=== PATIENT | male | born 1950 | race Caucasian/White ===

== ENCOUNTER 2017-11-05 16:35 | Emergency (ER) | payer OTHER, SELFPAY ==
--- NOTE | 2017-11-05 16:35 | DT_ITS ---
This patient was seen during an EMR downtime November 02, 2017 - November 09, 2017. This patient may have a combination of paper and electronic documentation or all paper documentation. All documentation is viewable within the e-chart portion of [facility] for each patient visit.
== END 2017-11-05 20:15 | disposition home or self-care (01) ==
LOC: ED 11-06 10:23
PROVIDERS: Emergency Provider Emergency Medicine; Family Provider Family Medicine; PCP Family Medicine
DX: S50.911A Unspecified superficial injury of right forearm, initial encounter (principal); W31.89XA Contact with other specified machinery, initial encounter; Y93.9 Activity, unspecified; Y92.9 Unspecified place or not applicable; Y99.0 Civilian activity done for income or pay; I10 Essential (primary) hypertension; Z87.891 Personal history of nicotine dependence; Z79.899 Other long term (current) drug therapy
CPT/HCPCS: 99282

== ENCOUNTER 2017-11-26 13:30 | Outpatient (RCR) | payer OTHER, SELFPAY ==
[2017-11-12 13:18] VITALS: BP 114/71; PULSE 59; RESP 18; TEMP 37
--- NOTE | 2017-11-12 14:02 | PCM.WC.HP ---
(1) Injury of right upper extremity Status: Acute Current Visit: Yes Code(s): S49.91XA - Unspecified injury of right shoulder and upper arm, initial encounter (2) Ulcer of upper extremity Status: Acute Current Visit: Yes Qualifiers: Non-pressure ulcer stage: with fat layer exposed Qualified Code(s): L98.492 - Non-pressure chronic ulcer of skin of other sites with fat layer exposed Code(s): L98.499 - Non-pressure chronic ulcer of skin of other sites with unspecified severity Comment: right (3) Cellulitis of right upper extremity Status: Acute Current Visit: Yes Code(s): L03.113 - Cellulitis of right upper limb History of Present Illness Date of Service: 11/12/17 Chief Complaint: BWC injury right upper extremity History of Wound: This is a 67-year-old white male who presents to the wound healing center today for treatment of a ulcer in the right upper extremity. This is a [facility] claim and the injury occurred at work. The patient states that on 10/27/2017, his arm was caught in between 2 rollers. He went to the emergency department and x-rays were negative. He has a past medical history significant for that of hypertension and vitamin D deficiency. His past surgical history includes a hip replacement. On 11/03/2017, the patient followed up at a workers comp clinic and was diagnosed with cellulitis of the right upper extremity and placed on Bactrim. He has tolerating the Bactrim fine. At his previous visit here at the wound center, he was sent to the emergency department due to a moderate amount of uncontrolled bleeding. This was on 11/05/2017, the bleeding was controlled in the emergency department and the patient was sent home. He was unable to get the Santyl ordered for him due to coverage. He is currently been utilizing double antibiotic ointment and wrapping the affected extremity with an Enmanuel wrap. He denies any systemic signs of infection and has 1 day left on an antibiotic. The patient otherwise denies any fever, chills, nausea, vomiting, shortness of breath, chest pain or pressure, palpitations, orthopnea, lower extremity edema, syncope or presyncopal episodes. Past Medical History Lives: Spouse/ Significant Other Tobacco Use: Non-smoker Review of Systems Constitutional: Denies: Chills, Fever, Weight Change Eyes: Denies: Pain, Vision Change HEENT: Denies: Difficulty Hearing, Difficulty Swallowing, Sinus Congestion Cardiovascular: Denies: Chest Pain, Palpitations Respiratory: Denies: Cough, Shortness of Breath Gastrointestinal: Denies: Diarrhea, Nausea, Vomiting Genitourinary: Denies: Dysuria, Hematuria Skin: Reports: Wounds - See HPI Endocrine: Denies: Heat/ Cold Intolerance, Polydipsia, Polyuria Hematologic/ Lymphatic: Denies: Easy Bruising, Easy Bleeding - Physical Exam Vital Signs Temp Pulse Resp BP 98.6 F 59 L 18 114/71 11/12/17 13:18 11/12/17 13:18 11/12/17 13:18 11/12/17 13:18 General: Alert, Oriented x3, Cooperative, No apparent distress HEENT: Atraumatic Lungs: Clear to auscultation Cardiovascular: Regular rate Skin: Ulcer/ Wound - Ulcer present right upper arm, surrounding erythema and the wound that has resolved in comparison to previous evaluation. Small amount of slough present and dry wound edges, center of ulcer has a $0.50 piece size of adherent necrotic tissue and slough, no increase in pain or purulent drainage or signs of infection Wound Measurements and Assessment WC - Nurse 1 - General Ulcer Measurement Start: 11/12/17 13:16 Freq: Status: Active Protocol: Activity Type Activity Date Activity User E-Sign Co-Sign Detail Recorded Client Recorded Date Recorded By Document 11/12/17 13:18 [id number] 11/12/17 13:30 DL 11/12/17 13:18 Wound Center Nurse 1 [Ulcer Assessment] #1 RUpper M Arm -Current Size (cm) - Length 12.4 -Current Size (cm) - Width 9.1 -Current Size (cm) - Depth 0.1 -Total Square Cm 112.84 -Photo Taken No -Exudate Amt Medium (34-66%) -Exudate Type Yellow/Green -Wound Margin Distinct, Outline Attached -Granulation Amt Large (67-100%) -Granulation Quality Red -Necrosis Amt Medium (34-66%) -Necrotic Tissue Type Adherent Slough -Structure Exposed N/A -Texture (Keesha-wound Skin Appearance) Scarring -Moisture (Keesha-wound Skin Appearance No Abnormality ) -Color (Keesha-wound Skin Appearance) No Abnormality Erythema -Temperature (Keesha-wound Skin No Abnormality Appearance) (Pt Warm) -Ulcer Cleansing Rinsed/ Irrigated with Saline -Foul Odor after Cleansing No -Anesthetic Used 4% Lidocaine Solution - Nurse 2 - General Ulcer CM Notes Start: 11/12/17 13:16 Freq: Status: Active Protocol: Activity Type Activity Date Activity User E-Sign Co-Sign Detail Recorded Client Recorded Date Recorded By Document 11/12/17 13:37 [email or web address] [id number] 11/12/17 13:49 11/12/17 13:37 Wound Center Nurse 2 [Procedure/Treatment] -Time 13:46 -Correct Patient Yes -Correct Side, Site, Position Yes -Correct Procedure Yes -Procedure Performed Yes -Type of Procedure Debridement -Clinical Debridement Subcutaneous -Post Debridement Size (cm) - Length 14.0 -Post Debridement Size (cm) - Width 11.0 -Post Debridement Size (cm) - Depth 0.1 -Total Square Cm 154.00 -Wound/Ulcer Outcome Not Healed -Ulcer Cleansing Rinsed/ Irrigated with Saline -Foul Odor after Cleansing No -Bioengineered Tissue No -Topical Lidocaine (%) 4 -Lidocaine (ml) 10 -Bleeding Controlled with NA -Treatment Response Procedure Tolerated Well [See Physician Procedure note for Specifics] Pain Scale: 0-10 Numeric [Pain] -Is Patient Pain Free? Yes Neurological: Neuro grossly intact Psych/Mental Status: Normal Affect, Alert and oriented to time, place, person, mood and affect Debridement Note Post-Debridement Measurements/Treatment - Nurse 2 - General Ulcer CM Notes Start: 11/12/17 13:16 Freq: Status: Active Protocol: Activity Type Activity Date Activity User E-Sign Co-Sign Detail Recorded Client Recorded Date Recorded By Document 11/12/17 13:37 [id number] 11/12/17 13:49 11/12/17 13:37 Wound Center Nurse 2 #1 Penny M Arm -Time 13:46 -Correct Patient Yes -Correct Side, Site, Position Yes -Correct Procedure Yes -Procedure Performed Yes -Type of Procedure Debridement -Clinical Debridement Subcutaneous -Post Debridement Size (cm) - Length 14.0 -Post Debridement Size (cm) - Width 11.0 -Post Debridement Size (cm) - Depth 0.1 -Total Square Cm 154.00 -Wound/Ulcer Outcome Not Healed -Ulcer Cleansing Rinsed/ Irrigated with Saline -Foul Odor after Cleansing No -Bioengineered Tissue No -Topical Lidocaine (%) 4 -Lidocaine (ml) 10 -Bleeding Controlled with NA -Treatment Response Procedure Tolerated Well Pain Scale: 0-10 Numeric Is Patient Pain Free? Yes Wound debrided: Traumatic right upper extremity ulcer Laterality: Right Type of Debridement: Excisional debridement Anesthesia Used: 5% Lidocaine Gel Depth: in the subcutaneous layer Percentage of wound debrided: 100 Instrument Used: 5mm curette, Forceps, - - Scissors Tissue Removed: Slough and devitalized tissue Severity: Fat Layer Exposed Amount of bleeding with debridement: Mild Bleeding Controlled with: Pressure Patient tolerated procedure well Assessment/Plan Active Problems Injury of right upper extremity (Acute) Ulcer of upper extremity (Acute) right Cellulitis of right upper extremity (Acute) Assessment: See diagnoses Plan: The patient was seen and examined at the wound center today and was updated on the plan of care. The patient's wound is improving prior to last week. A subcutaneous debridement was performed today. The patient tolerated the procedure well. The patients wound care will consist of: Applying Santyl or meta honey, which ever treatment modality is covered better by [facility], to the area of necrotic tissue and adherent slough and hydrogel applied to the remaining areas of the ulcer. Enmanuel wrap for light compression, continue the entire completion of the Bactrim DS for cellulitis which has almost entirely resolved. Patient educated on the importance of diet on wound healing and instructed to increase protein and vitamin C intake. Patient verbalized understanding. Patient will follow up at wound healing center in one week or sooner if needed. This note was generated with [employer] software. It may contain incorrect words, spelling, and punctuation that were not noted in checking the note before signing. Code Visit 111xxx-113xx: 73826 Autumn subq tissue 20 sq cm/< Add On Codes: 43445 Autumn subq tissue add-on
--- NOTE | 2017-11-12 14:12 | HP.PCM_ITS ---
(1) Injury of right upper extremity Status: Acute Current Visit: Yes Code(s): S49.91XA - Unspecified injury of right shoulder and upper arm, initial encounter (2) Ulcer of upper extremity Status: Acute Current Visit: Yes Qualifiers: Non-pressure ulcer stage: with fat layer exposed Qualified Code(s): L98.492 - Non-pressure chronic ulcer of skin of other sites with fat layer exposed Code(s): L98.499 - Non-pressure chronic ulcer of skin of other sites with unspecified severity Comment: right (3) Cellulitis of right upper extremity Status: Acute Current Visit: Yes Code(s): L03.113 - Cellulitis of right upper limb History of Present Illness Date of Service: 11/12/17 Chief Complaint: BWC injury right upper extremity History of Wound: This is a 67-year-old white male who presents to the wound healing center today for treatment of a ulcer in the right upper extremity. This is a [facility] claim and the injury occurred at work. The patient states that on 10/27/2017, his arm was caught in between 2 rollers. He went to the emergency department and x-rays were negative. He has a past medical history significant for that of hypertension and vitamin D deficiency. His past surgical history includes a hip replacement. On 11/03/2017, the patient followed up at a workers comp clinic and was diagnosed with cellulitis of the right upper extremity and placed on Bactrim. He has tolerating the Bactrim fine. At his previous visit here at the wound center, he was sent to the emergency department due to a moderate amount of uncontrolled bleeding. This was on 2017, the bleeding was controlled in the emergency department and the patient was sent home. He was unable to get the Santyl ordered for him due to coverage. He is currently been utilizing double antibiotic ointment and wrapping the affected extremity with an Enmanuel wrap. He denies any systemic signs of infection and has 1 day left on an antibiotic. The patient otherwise denies any fever, chills, nausea, vomiting, shortness of breath, chest pain or pressure , palpitations, orthopnea, lower extremity edema, syncope or presyncopal episodes. Past Medical History Lives: Spouse/ Significant Other Tobacco Use: Non-smoker Review of Systems Constitutional: Denies: Chills, Fever, Weight Change Eyes: Denies: Pain, Vision Change HEENT: Denies: Difficulty Hearing, Difficulty Swallowing, Sinus Congestion Cardiovascular: Denies: Chest Pain, Palpitations Respiratory: Denies: Cough, Shortness of Breath Gastrointestinal: Denies: Diarrhea, Nausea, Vomiting Genitourinary: Denies: Dysuria, Hematuria Skin: Reports: Wounds - See HPI Endocrine: Denies: Heat/ Cold Intolerance, Polydipsia, Polyuria Hematologic/ Lymphatic: Denies: Easy Bruising, Easy Bleeding - Physical Exam Vital Signs Temp Pulse Resp BP 98.6 F 59 L 18 114/71 11/12/17 13:18 11/12/17 13:18 11/12/17 13:18 11/12/17 13:18 General: Alert, Oriented x3, Cooperative, No apparent distress HEENT: Atraumatic Lungs: Clear to auscultation Cardiovascular: Regular rate Skin: Ulcer/ Wound - Ulcer present right upper arm, surrounding erythema and the wound that has resolved in comparison to previous evaluation. Small amount of slough present and dry wound edges, center of ulcer has a $0.50 piece size of adherent necrotic tissue and slough, no increase in pain or purulent drainage or signs of infection Wound Measurements and Assessment WC - Nurse 1 - General Ulcer Measurement Start: 11/12/17 13:16 Freq: Status: Active Protocol: Activity Type Activity Date Activity User E-Sign Co-Sign Detail Recorded Client Recorded Date Recorded By Document 11/12/17 13:18 [id number] 11/12/17 13:30 DL 11/12/17 13:18 Wound Center Nurse 1 [Ulcer Assessment] #1 RUpper M Arm -Current Size (cm) - Length 12.4 -Current Size (cm) - Width 9.1 -Current Size (cm) - Depth 0.1 -Total Square Cm 112.84 -Photo Taken No -Exudate Amt Medium (34-66%) -Exudate Type Yellow/Green -Wound Margin Distinct, Outline Attached -Granulation Amt Large (67-100%) -Granulation Quality Red -Necrosis Amt Medium (34-66%) -Necrotic Tissue Type Adherent Slough -Structure Exposed N/A -Texture (Keesha-wound Skin Appearance) Scarring -Moisture (Keesha-wound Skin Appearance No Abnormality ) -Color (Keesha-wound Skin Appearance) No Abnormality Erythema -Temperature (Keesha-wound Skin No Abnormality Appearance) (Pt Warm) -Ulcer Cleansing Rinsed/ Irrigated with Saline -Foul Odor after Cleansing No -Anesthetic Used 4% Lidocaine Solution - Nurse 2 - General Ulcer CM Notes Start: 11/12/17 13:16 Freq: Status: Active Protocol: Activity Type Activity Date Activity User E-Sign Co-Sign Detail Recorded Client Recorded Date Recorded By Document 11/12/17 13:37 [email or web address] [id number] 11/12/17 13:49 11/12/17 13:37 Wound Center Nurse 2 [Procedure/Treatment] -Time 13:46 -Correct Patient Yes -Correct Side, Site, Position Yes -Correct Procedure Yes -Procedure Performed Yes -Type of Procedure Debridement -Clinical Debridement Subcutaneous -Post Debridement Size (cm) - Length 14.0 -Post Debridement Size (cm) - Width 11.0 -Post Debridement Size (cm) - Depth 0.1 -Total Square Cm 154.00 -Wound/Ulcer Outcome Not Healed -Ulcer Cleansing Rinsed/ Irrigated with Saline -Foul Odor after Cleansing No -Bioengineered Tissue No -Topical Lidocaine (%) 4 -Lidocaine (ml) 10 -Bleeding Controlled with NA -Treatment Response Procedure Tolerated Well [See Physician Procedure note for Specifics] Pain Scale: 0-10 Numeric [Pain] -Is Patient Pain Free? Yes Neurological: Neuro grossly intact Psych/Mental Status: Normal Affect, Alert and oriented to time, place, person, mood and affect Debridement Note Post-Debridement Measurements/Treatment - Nurse 2 - General Ulcer CM Notes Start: 11/12/17 13:16 Freq: Status: Active Protocol: Activity Type Activity Date Activity User E-Sign Co-Sign Detail Recorded Client Recorded Date Recorded By Document 11/12/17 13:37 [id number] 11/12/17 13:49 11/12/17 13:37 Wound Center Nurse 2 #1 Penny M Arm -Time 13:46 -Correct Patient Yes -Correct Side, Site, Position Yes -Correct Procedure Yes -Procedure Performed Yes -Type of Procedure Debridement -Clinical Debridement Subcutaneous -Post Debridement Size (cm) - Length 14.0 -Post Debridement Size (cm) - Width 11.0 -Post Debridement Size (cm) - Depth 0.1 -Total Square Cm 154.00 -Wound/Ulcer Outcome Not Healed -Ulcer Cleansing Rinsed/ Irrigated with Saline -Foul Odor after Cleansing No -Bioengineered Tissue No -Topical Lidocaine (%) 4 -Lidocaine (ml) 10 -Bleeding Controlled with NA -Treatment Response Procedure Tolerated Well Pain Scale: 0-10 Numeric Is Patient Pain Free? Yes Wound debrided: Traumatic right upper extremity ulcer Laterality: Right Type of Debridement: Excisional debridement Anesthesia Used: 5% Lidocaine Gel Depth: in the subcutaneous layer Percentage of wound debrided: 100 Instrument Used: 5mm curette, Forceps, - - Scissors Tissue Removed: Slough and devitalized tissue Severity: Fat Layer Exposed Amount of bleeding with debridement: Mild Bleeding Controlled with: Pressure Patient tolerated procedure well Assessment/Plan Active Problems Injury of right upper extremity (Acute) Ulcer of upper extremity (Acute) right Cellulitis of right upper extremity (Acute) Assessment: See diagnoses Plan: The patient was seen and examined at the wound center today and was updated on the plan of care. The patient's wound is improving prior to last week. A subcutaneous debridement was performed today. The patient tolerated the procedure well. The patients wound care will consist of: Applying Santyl or meta honey, which ever treatment modality is covered better by [facility], to the area of necrotic tissue and adherent slough and hydrogel applied to the remaining areas of the ulcer. Enmanuel wrap for light compression, continue the entire completion of the Bactrim DS for cellulitis which has almost entirely resolved. Patient educated on the importance of diet on wound healing and instructed to increase protein and vitamin C intake. Patient verbalized understanding. Patient will follow up at wound healing center in one week or sooner if needed. This note was generated with [employer] software. It may contain incorrect words, spelling, and punctuation that were not noted in checking the note before signing. Code Visit 111xxx-113xx: 21745 Autumn subq tissue 20 sq cm/< Add On Codes: 38565 Autumn subq tissue add-on
[2017-11-19 13:14] VITALS: BP 112/73; PULSE 65; RESP 16; TEMP 36.6
--- NOTE | 2017-11-19 14:22 | PCM.WC.PN ---
(1) Injury of right upper extremity Status: Acute Current Visit: Yes Code(s): S49.91XA - Unspecified injury of right shoulder and upper arm, initial encounter (2) Ulcer of upper extremity Status: Acute Current Visit: Yes Qualifiers: Non-pressure ulcer stage: with fat layer exposed Qualified Code(s): L98.492 - Non-pressure chronic ulcer of skin of other sites with fat layer exposed Code(s): L98.499 - Non-pressure chronic ulcer of skin of other sites with unspecified severity Comment: right (3) Cellulitis of right upper extremity Status: Acute Current Visit: Yes Code(s): L03.113 - Cellulitis of right upper limb Type of Wound Date of Service: 11/19/17 Chief Complaint: BWC injury right upper extremity History of Wound: This is a 67-year-old white male who presents to the wound healing center today for treatment of a ulcer in the right upper extremity. This is a [facility] claim and the injury occurred at work. The patient states that on 10/27/2017, his arm was caught in between 2 rollers. He went to the emergency department and x-rays were negative. He has a past medical history significant for that of hypertension and vitamin D deficiency. His past surgical history includes a hip replacement. On 11/03/2017, the patient followed up at a workers comp clinic and was diagnosed with cellulitis of the right upper extremity and placed on Bactrim. He has tolerating the Bactrim fine. At his previous visit here at the wound center, he was sent to the emergency department due to a moderate amount of uncontrolled bleeding. This was on 11/05/2017, the bleeding was controlled in the emergency department and the patient was sent home. He was unable to get the Santyl ordered for him due to coverage. He is currently been utilizing double antibiotic ointment and wrapping the affected extremity with an Enmanuel wrap. He denies any systemic signs of infection and has 1 day left on an antibiotic. The patient otherwise denies any fever, chills, nausea, vomiting, shortness of breath, chest pain or pressure, palpitations, orthopnea, lower extremity edema, syncope or presyncopal episodes. Progress of Wound: cellulitis resolved, site is gradually improving, still quarter size of eschar in middle of ulcer. Santyl pending prior auth - Physical Exam Vital Signs Temp Pulse Resp BP 97.8 F 65 16 112/73 11/19/17 13:14 11/19/17 13:14 11/19/17 13:14 11/19/17 13:14 General: Alert, Oriented x3, Cooperative, No apparent distress HEENT: Atraumatic Skin: Ulcer/ Wound - ulcer present RUE with quarter size eschar in the middle, small amount of surrounding slough present, no signs of infection Wound Measurements and Assessment WC - Nurse 1 - General Ulcer Measurement Start: 11/12/17 13:16 Freq: Status: Active Protocol: Activity Type Activity Date Activity User E-Sign Co-Sign Detail Recorded Client Recorded Date Recorded By Document 11/19/17 13:14 [facility] [id number] 11/19/17 13:25 BM 11/19/17 13:14 Wound Center Nurse 1 [Ulcer Assessment] #1 RIGHT UPPER ARM -Combined with other wound No -Current Size (cm) - Length 10 -Current Size (cm) - Width 7.2 -Current Size (cm) - Depth 0.1 -Total Square Cm 72.0 -Photo Taken No -Epithelialization Small 1-33% -Tunneling No -Undermining/Tunneling No -Circular Undermining No -Exudate Amt Medium (34-66%) -Exudate Type Serosanguineous -Wound Margin Distinct, Outline Attached -Granulation Amt Medium (34-66%) -Granulation Quality Red -Slough/Fibrin Yes -Necrosis Amt Medium (34-66%) -Necrotic Tissue Type Eschar -Structure Exposed N/A -Texture (Keesha-wound Skin Appearance) Scarring -Moisture (Keesha-wound Skin Appearance Assessed ) -Color (Keesha-wound Skin Appearance) Assessed -Temperature (Keesha-wound Skin No Abnormality Appearance) (Pt Warm) -Tenderness on Palpation (Keesha-wound No Skin Appearance) -Ulcer Cleansing Rinsed/ Irrigated with Saline -Foul Odor after Cleansing No -Anesthetic Used 4% Lidocaine Solution - Nurse 2 - General Ulcer CM Notes Start: 11/12/17 13:16 Freq: Status: Active Protocol: Activity Type Activity Date Activity User E-Sign Co-Sign Detail Recorded Client Recorded Date Recorded By Document 11/19/17 13:46 DV [id number] 11/19/17 14:03 DV 11/19/17 13:46 Wound Center Nurse 2 [Procedure/Treatment] -Time 13:51 -Correct Patient Yes -Correct Side, Site, Position Yes -Correct Procedure Yes -Procedure Performed Yes -Type of Procedure Debridement -Clinical Debridement Subcutaneous -Post Debridement Size (cm) - Length 9.5 -Post Debridement Size (cm) - Width 4.5 -Post Debridement Size (cm) - Depth 0.1 -Total Square Cm 42.75 -Wound/Ulcer Outcome Not Healed -Ulcer Cleansing Rinsed/ Irrigated with Saline -Foul Odor after Cleansing No -Bioengineered Tissue No -Bleeding Controlled with Pressure -Treatment Response Procedure Tolerated Well [See Physician Procedure note for Specifics] Pain Scale: 0-10 Numeric [Pain] -Is Patient Pain Free? Yes Neurological: Neuro grossly intact Psych/Mental Status: Normal Affect, Alert and oriented to time, place, person, mood and affect Debridement Note Post-Debridement Measurements/Treatment WC - Nurse 2 - General Ulcer CM Notes Start: 11/12/17 13:16 Freq: Status: Active Protocol: Activity Type Activity Date Activity User E-Sign Co-Sign Detail Recorded Client Recorded Date Recorded By Document 11/12/17 13:37 JS [id number] 11/12/17 13:49 JS Document 11/19/17 13:46 DV [id number] 11/19/17 14:03 DV 11/12/17 11/19/17 13:37 13:46 Wound Center Nurse 2 #1 RIGHT UPPER ARM -Time 13:46 13:51 -Correct Patient Yes Yes -Correct Side, Site, Position Yes Yes -Correct Procedure Yes Yes -Procedure Performed Yes Yes -Type of Procedure Debridement Debridement -Clinical Debridement Subcutaneous Subcutaneous -Post Debridement Size (cm) - Length 14.0 9.5 -Post Debridement Size (cm) - Width 11.0 4.5 -Post Debridement Size (cm) - Depth 0.1 0.1 -Total Square Cm 154.00 42.75 -Wound/Ulcer Outcome Not Healed Not Healed -Ulcer Cleansing Rinsed/ Rinsed/ Irrigated with Irrigated with Saline Saline -Foul Odor after Cleansing No No -Bioengineered Tissue No No -Topical Lidocaine (%) 4 -Lidocaine (ml) 10 -Bleeding Controlled with NA Pressure -Treatment Response Procedure Procedure Tolerated Well Tolerated Well Pain Scale: 0-10 Numeric Is Patient Pain Free? Yes Yes Wound debrided: RUE ulcer Laterality: Right Type of Debridement: Excisional debridement Anesthesia Used: 5% Lidocaine Gel Depth: in the subcutaneous layer Percentage of wound debrided: 100 Instrument Used: 5mm curette, Forceps, - - scissors Tissue Removed: small amount of eschar, moderate slough, and devitalized tissue Severity: Fat Layer Exposed Amount of bleeding with debridement: Mild Bleeding Controlled with: Pressure Patient tolerated procedure well Assessment/Plan Active Problems Injury of right upper extremity (Acute) Ulcer of upper extremity (Acute) right Cellulitis of right upper extremity (Acute) Assessment: See diagnoses Plan: The patient was seen and examined at the wound center today and was updated on the plan of care. The patient's wound is improving prior to last week. A subcutaneous debridement was performed today. The patient tolerated the procedure well. The patients wound care will consist of: Applying hydrogel daily to the ulcer. Enmanuel wrap for light compression, patient completed of the Bactrim DS for cellulitis which has entirely resolved. Patient educated on the importance of diet on wound healing and instructed to increase protein and vitamin C intake. Patient verbalized understanding. Patient will follow up at wound healing center in one week or sooner if needed. This note was generated with [employer] dictation software. It may contain incorrect words, spelling, and punctuation that were not noted in checking the note before signing. Code Visit 111xxx-113xx: 58725 Autumn subq tissue 20 sq cm/< Add On Codes: 51065 Autumn subq tissue add-on
--- NOTE | 2017-11-19 14:33 | PN.PCM_ITS ---
(1) Injury of right upper extremity Status: Acute Current Visit: Yes Code(s): S49.91XA - Unspecified injury of right shoulder and upper arm, initial encounter (2) Ulcer of upper extremity Status: Acute Current Visit: Yes Qualifiers: Non-pressure ulcer stage: with fat layer exposed Qualified Code(s): L98.492 - Non-pressure chronic ulcer of skin of other sites with fat layer exposed Code(s): L98.499 - Non-pressure chronic ulcer of skin of other sites with unspecified severity Comment: right (3) Cellulitis of right upper extremity Status: Acute Current Visit: Yes Code(s): L03.113 - Cellulitis of right upper limb Type of Wound Date of Service: 11/19/17 Chief Complaint: BWC injury right upper extremity History of Wound: This is a 67-year-old white male who presents to the wound healing center today for treatment of a ulcer in the right upper extremity. This is a [facility] claim and the injury occurred at work. The patient states that on 10/27/2017, his arm was caught in between 2 rollers. He went to the emergency department and x-rays were negative. He has a past medical history significant for that of hypertension and vitamin D deficiency. His past surgical history includes a hip replacement. On 11/03/2017, the patient followed up at a workers comp clinic and was diagnosed with cellulitis of the right upper extremity and placed on Bactrim. He has tolerating the Bactrim fine. At his previous visit here at the wound center, he was sent to the emergency department due to a moderate amount of uncontrolled bleeding. This was on 2017, the bleeding was controlled in the emergency department and the patient was sent home. He was unable to get the Santyl ordered for him due to coverage. He is currently been utilizing double antibiotic ointment and wrapping the affected extremity with an Enmanuel wrap. He denies any systemic signs of infection and has 1 day left on an antibiotic. The patient otherwise denies any fever, chills, nausea, vomiting, shortness of breath, chest pain or pressure , palpitations, orthopnea, lower extremity edema, syncope or presyncopal episodes. Progress of Wound: cellulitis resolved, site is gradually improving, still quarter size of eschar in middle of ulcer. Santyl pending prior auth - Physical Exam Vital Signs Temp Pulse Resp BP 97.8 F 65 16 112/73 11/19/17 13:14 11/19/17 13:14 11/19/17 13:14 11/19/17 13:14 General: Alert, Oriented x3, Cooperative, No apparent distress HEENT: Atraumatic Skin: Ulcer/ Wound - ulcer present RUE with quarter size eschar in the middle, small amount of surrounding slough present, no signs of infection Wound Measurements and Assessment WC - Nurse 1 - General Ulcer Measurement Start: 11/12/17 13:16 Freq: Status: Active Protocol: Activity Type Activity Date Activity User E-Sign Co-Sign Detail Recorded Client Recorded Date Recorded By Document 11/19/17 13:14 [facility] [id number] 11/19/17 13:25 BM 11/19/17 13:14 Wound Center Nurse 1 [Ulcer Assessment] #1 RIGHT UPPER ARM -Combined with other wound No -Current Size (cm) - Length 10 -Current Size (cm) - Width 7.2 -Current Size (cm) - Depth 0.1 -Total Square Cm 72.0 -Photo Taken No -Epithelialization Small 1-33% -Tunneling No -Undermining/Tunneling No -Circular Undermining No -Exudate Amt Medium (34-66%) -Exudate Type Serosanguineous -Wound Margin Distinct, Outline Attached -Granulation Amt Medium (34-66%) -Granulation Quality Red -Slough/Fibrin Yes -Necrosis Amt Medium (34-66%) -Necrotic Tissue Type Eschar -Structure Exposed N/A -Texture (Keesha-wound Skin Appearance) Scarring -Moisture (Keesha-wound Skin Appearance Assessed ) -Color (Keesha-wound Skin Appearance) Assessed -Temperature (Keesha-wound Skin No Abnormality Appearance) (Pt Warm) -Tenderness on Palpation (Keesha-wound No Skin Appearance) -Ulcer Cleansing Rinsed/ Irrigated with Saline -Foul Odor after Cleansing No -Anesthetic Used 4% Lidocaine Solution - Nurse 2 - General Ulcer CM Notes Start: 11/12/17 13:16 Freq: Status: Active Protocol: Activity Type Activity Date Activity User E-Sign Co-Sign Detail Recorded Client Recorded Date Recorded By Document 11/19/17 13:46 DV [id number] 11/19/17 14:03 DV 11/19/17 13:46 Wound Center Nurse 2 [Procedure/Treatment] -Time 13:51 -Correct Patient Yes -Correct Side, Site, Position Yes -Correct Procedure Yes -Procedure Performed Yes -Type of Procedure Debridement -Clinical Debridement Subcutaneous -Post Debridement Size (cm) - Length 9.5 -Post Debridement Size (cm) - Width 4.5 -Post Debridement Size (cm) - Depth 0.1 -Total Square Cm 42.75 -Wound/Ulcer Outcome Not Healed -Ulcer Cleansing Rinsed/ Irrigated with Saline -Foul Odor after Cleansing No -Bioengineered Tissue No -Bleeding Controlled with Pressure -Treatment Response Procedure Tolerated Well [See Physician Procedure note for Specifics] Pain Scale: 0-10 Numeric [Pain] -Is Patient Pain Free? Yes Neurological: Neuro grossly intact Psych/Mental Status: Normal Affect, Alert and oriented to time, place, person, mood and affect Debridement Note Post-Debridement Measurements/Treatment WC - Nurse 2 - General Ulcer CM Notes Start: 11/12/17 13:16 Freq: Status: Active Protocol: Activity Type Activity Date Activity User E-Sign Co-Sign Detail Recorded Client Recorded Date Recorded By Document 11/12/17 13:37 JS [id number] 11/12/17 13:49 JS Document 11/19/17 13:46 DV [id number] 11/19/17 14:03 DV 11/12/17 11/19/17 13:37 13:46 Wound Center Nurse 2 #1 RIGHT UPPER ARM -Time 13:46 13:51 -Correct Patient Yes Yes -Correct Side, Site, Position Yes Yes -Correct Procedure Yes Yes -Procedure Performed Yes Yes -Type of Procedure Debridement Debridement -Clinical Debridement Subcutaneous Subcutaneous -Post Debridement Size (cm) - Length 14.0 9.5 -Post Debridement Size (cm) - Width 11.0 4.5 -Post Debridement Size (cm) - Depth 0.1 0.1 -Total Square Cm 154.00 42.75 -Wound/Ulcer Outcome Not Healed Not Healed -Ulcer Cleansing Rinsed/ Rinsed/ Irrigated with Irrigated with Saline Saline -Foul Odor after Cleansing No No -Bioengineered Tissue No No -Topical Lidocaine (%) 4 -Lidocaine (ml) 10 -Bleeding Controlled with NA Pressure -Treatment Response Procedure Procedure Tolerated Well Tolerated Well Pain Scale: 0-10 Numeric Is Patient Pain Free? Yes Yes Wound debrided: RUE ulcer Laterality: Right Type of Debridement: Excisional debridement Anesthesia Used: 5% Lidocaine Gel Depth: in the subcutaneous layer Percentage of wound debrided: 100 Instrument Used: 5mm curette, Forceps, - - scissors Tissue Removed: small amount of eschar, moderate slough, and devitalized tissue Severity: Fat Layer Exposed Amount of bleeding with debridement: Mild Bleeding Controlled with: Pressure Patient tolerated procedure well Assessment/Plan Active Problems Injury of right upper extremity (Acute) Ulcer of upper extremity (Acute) right Cellulitis of right upper extremity (Acute) Assessment: See diagnoses Plan: The patient was seen and examined at the wound center today and was updated on the plan of care. The patient's wound is improving prior to last week. A subcutaneous debridement was performed today. The patient tolerated the procedure well. The patients wound care will consist of: Applying hydrogel daily to the ulcer. Enmanuel wrap for light compression, patient completed of the Bactrim DS for cellulitis which has entirely resolved. Patient educated on the importance of diet on wound healing and instructed to increase protein and vitamin C intake. Patient verbalized understanding. Patient will follow up at wound healing center in one week or sooner if needed. This note was generated with [employer] dictation software. It may contain incorrect words, spelling, and punctuation that were not noted in checking the note before signing. Code Visit 111xxx-113xx: 78009 Autumn subq tissue 20 sq cm/< Add On Codes: 32159 Autumn subq tissue add-on
--- NOTE | 2017-11-19 20:41 | PCM.WC.PN ---
(1) Injury of right upper extremity Status: Acute Code(s): S49.91XA - Unspecified injury of right shoulder and upper arm, initial encounter (2) Ulcer of upper extremity Status: Acute Qualifiers: Non-pressure ulcer stage: with fat layer exposed Qualified Code(s): L98.492 - Non-pressure chronic ulcer of skin of other sites with fat layer exposed Code(s): L98.499 - Non-pressure chronic ulcer of skin of other sites with unspecified severity Comment: right (3) Cellulitis of right upper extremity Status: Acute Code(s): L03.113 - Cellulitis of right upper limb Type of Wound Date of Service: 11/19/17 Chief Complaint: BWC injury right upper extremity History of Wound: This is a 67-year-old white male who presents to the wound healing center today for treatment of a ulcer in the right upper extremity. This is a [facility] claim and the injury occurred at work. The patient states that on 10/27/2017, his arm was caught in between 2 rollers. He went to the emergency department and x-rays were negative. He has a past medical history significant for that of hypertension and vitamin D deficiency. His past surgical history includes a hip replacement. On 11/03/2017, the patient followed up at a workers comp clinic and was diagnosed with cellulitis of the right upper extremity and placed on Bactrim. He has tolerating the Bactrim fine. At his previous visit here at the wound center, he was sent to the emergency department due to a moderate amount of uncontrolled bleeding. This was on 11/05/2017, the bleeding was controlled in the emergency department and the patient was sent home. He was unable to get the Santyl ordered for him due to coverage. He is currently been utilizing double antibiotic ointment and wrapping the affected extremity with an Enmanuel wrap. He denies any systemic signs of infection and has 1 day left on an antibiotic. The patient otherwise denies any fever, chills, nausea, vomiting, shortness of breath, chest pain or pressure, palpitations, orthopnea, lower extremity edema, syncope or presyncopal episodes. Progress of Wound: cellulitis resolved, site is gradually improving, still quarter size of eschar in middle of ulcer. Santyl pending prior auth, pt has been doing well with hydrogel - Physical Exam Vital Signs Temp Pulse Resp BP 97.8 F 65 16 112/73 11/19/17 13:14 11/19/17 13:14 11/19/17 13:14 11/19/17 13:14 General: Alert, Oriented x3, Cooperative, No apparent distress HEENT: Atraumatic Cardiovascular: Regular rate, Regular Rhythm Skin: Ulcer/ Wound - ulcer RUE with adherent slough and quarter sized necrotic tissue in center, no signs of cellulitis Neurological: Neuro grossly intact Psych/Mental Status: Normal Affect, Alert and oriented to time, place, person, mood and affect Debridement Note Post-Debridement Measurements/Treatment WC - Nurse 2 - General Ulcer CM Notes Start: 11/12/17 13:16 Freq: Status: Active Protocol: Activity Type Activity Date Activity User E-Sign Co-Sign Detail Recorded Client Recorded Date Recorded By Document 11/12/17 13:37 JS [id number] 11/12/17 13:49 JS Document 11/19/17 13:46 DV [id number] 11/19/17 14:03 DV 11/12/17 11/19/17 13:37 13:46 Wound Center Nurse 2 #1 RIGHT UPPER ARM -Time 13:46 13:51 -Correct Patient Yes Yes -Correct Side, Site, Position Yes Yes -Correct Procedure Yes Yes -Procedure Performed Yes Yes -Type of Procedure Debridement Debridement -Clinical Debridement Subcutaneous Subcutaneous -Post Debridement Size (cm) - Length 14.0 9.5 -Post Debridement Size (cm) - Width 11.0 4.5 -Post Debridement Size (cm) - Depth 0.1 0.1 -Total Square Cm 154.00 42.75 -Wound/Ulcer Outcome Not Healed Not Healed -Ulcer Cleansing Rinsed/ Rinsed/ Irrigated with Irrigated with Saline Saline -Foul Odor after Cleansing No No -Bioengineered Tissue No No -Topical Lidocaine (%) 4 -Lidocaine (ml) 10 -Bleeding Controlled with NA Pressure -Treatment Response Procedure Procedure Tolerated Well Tolerated Well Pain Scale: 0-10 Numeric Is Patient Pain Free? Yes Yes Wound debrided: Right upper arm ulcer Laterality: Right Type of Debridement: Excisional debridement Anesthesia Used: 5% Lidocaine Gel Depth: in the subcutaneous layer Percentage of wound debrided: 100 Instrument Used: 3mm curette, Forceps, - - scissors to trim necrotic tissue Tissue Removed: slough and necrotic tissue Severity: Fat Layer Exposed Amount of bleeding with debridement: Mild Bleeding Controlled with: Pressure Patient tolerated procedure well Assessment/Plan Assessment: See diagnoses Plan: The patient was seen and examined at the wound center today and was updated on the plan of care. The patient's wound is improving prior to last week. A subcutaneous debridement was performed today. The patient tolerated the procedure well. The patients wound care will consist of: Applying hydrogel daily to the ulcer. Enmanuel wrap for light compression, patient completed of the Bactrim DS for cellulitis which has entirely resolved. Patient educated on the importance of diet on wound healing and instructed to increase protein and vitamin C intake. Patient verbalized understanding. Patient will follow up at wound healing center in one week or sooner if needed. This note was generated with [employer] dictation software. It may contain incorrect words, spelling, and punctuation that were not noted in checking the note before signing. Code Visit 111xxx-113xx: 45491 Autumn subq tissue 20 sq cm/< Add On Codes: [id number] Autumn subq tissue add-on
--- NOTE | 2017-11-25 08:45 | PN.PCM_ITS ---
(1) Injury of right upper extremity Status: Acute Code(s): S49.91XA - Unspecified injury of right shoulder and upper arm, initial encounter (2) Ulcer of upper extremity Status: Acute Qualifiers: Non-pressure ulcer stage: with fat layer exposed Qualified Code(s): L98.492 - Non-pressure chronic ulcer of skin of other sites with fat layer exposed Code(s): L98.499 - Non-pressure chronic ulcer of skin of other sites with unspecified severity Comment: right (3) Cellulitis of right upper extremity Status: Acute Code(s): L03.113 - Cellulitis of right upper limb Type of Wound Date of Service: 11/19/17 Chief Complaint: BWC injury right upper extremity History of Wound: This is a 67-year-old white male who presents to the wound healing center today for treatment of a ulcer in the right upper extremity. This is a [facility] claim and the injury occurred at work. The patient states that on 10/27/2017, his arm was caught in between 2 rollers. He went to the emergency department and x-rays were negative. He has a past medical history significant for that of hypertension and vitamin D deficiency. His past surgical history includes a hip replacement. On 11/03/2017, the patient followed up at a workers comp clinic and was diagnosed with cellulitis of the right upper extremity and placed on Bactrim. He has tolerating the Bactrim fine. At his previous visit here at the wound center, he was sent to the emergency department due to a moderate amount of uncontrolled bleeding. This was on 2017, the bleeding was controlled in the emergency department and the patient was sent home. He was unable to get the Santyl ordered for him due to coverage. He is currently been utilizing double antibiotic ointment and wrapping the affected extremity with an Enmanuel wrap. He denies any systemic signs of infection and has 1 day left on an antibiotic. The patient otherwise denies any fever, chills, nausea, vomiting, shortness of breath, chest pain or pressure , palpitations, orthopnea, lower extremity edema, syncope or presyncopal episodes. Progress of Wound: cellulitis resolved, site is gradually improving, still quarter size of eschar in middle of ulcer. Santyl pending prior auth, pt has been doing well with hydrogel - Physical Exam Vital Signs Temp Pulse Resp BP 97.8 F 65 16 112/73 11/19/17 13:14 11/19/17 13:14 11/19/17 13:14 11/19/17 13:14 General: Alert, Oriented x3, Cooperative, No apparent distress HEENT: Atraumatic Cardiovascular: Regular rate, Regular Rhythm Skin: Ulcer/ Wound - ulcer RUE with adherent slough and quarter sized necrotic tissue in center, no signs of cellulitis Neurological: Neuro grossly intact Psych/Mental Status: Normal Affect, Alert and oriented to time, place, person, mood and affect Debridement Note Post-Debridement Measurements/Treatment WC - Nurse 2 - General Ulcer CM Notes Start: 11/12/17 13:16 Freq: Status: Active Protocol: Activity Type Activity Date Activity User E-Sign Co-Sign Detail Recorded Client Recorded Date Recorded By Document 11/12/17 13:37 JS [id number] 11/12/17 13:49 JS Document 11/19/17 13:46 DV [id number] 11/19/17 14:03 DV 11/12/17 11/19/17 13:37 13:46 Wound Center Nurse 2 #1 RIGHT UPPER ARM -Time 13:46 13:51 -Correct Patient Yes Yes -Correct Side, Site, Position Yes Yes -Correct Procedure Yes Yes -Procedure Performed Yes Yes -Type of Procedure Debridement Debridement -Clinical Debridement Subcutaneous Subcutaneous -Post Debridement Size (cm) - Length 14.0 9.5 -Post Debridement Size (cm) - Width 11.0 4.5 -Post Debridement Size (cm) - Depth 0.1 0.1 -Total Square Cm 154.00 42.75 -Wound/Ulcer Outcome Not Healed Not Healed -Ulcer Cleansing Rinsed/ Rinsed/ Irrigated with Irrigated with Saline Saline -Foul Odor after Cleansing No No -Bioengineered Tissue No No -Topical Lidocaine (%) 4 -Lidocaine (ml) 10 -Bleeding Controlled with NA Pressure -Treatment Response Procedure Procedure Tolerated Well Tolerated Well Pain Scale: 0-10 Numeric Is Patient Pain Free? Yes Yes Wound debrided: Right upper arm ulcer Laterality: Right Type of Debridement: Excisional debridement Anesthesia Used: 5% Lidocaine Gel Depth: in the subcutaneous layer Percentage of wound debrided: 100 Instrument Used: 3mm curette, Forceps, - - scissors to trim necrotic tissue Tissue Removed: slough and necrotic tissue Severity: Fat Layer Exposed Amount of bleeding with debridement: Mild Bleeding Controlled with: Pressure Patient tolerated procedure well Assessment/Plan Assessment: See diagnoses Plan: The patient was seen and examined at the wound center today and was updated on the plan of care. The patient's wound is improving prior to last week. A subcutaneous debridement was performed today. The patient tolerated the procedure well. The patients wound care will consist of: Applying hydrogel daily to the ulcer. Enmanuel wrap for light compression, patient completed of the Bactrim DS for cellulitis which has entirely resolved. Patient educated on the importance of diet on wound healing and instructed to increase protein and vitamin C intake. Patient verbalized understanding. Patient will follow up at wound healing center in one week or sooner if needed. This note was generated with [employer] dictation software. It may contain incorrect words, spelling, and punctuation that were not noted in checking the note before signing. Code Visit 111xxx-113xx: 30585 Autumn subq tissue 20 sq cm/< Add On Codes: 27281 Autumn subq tissue add-on
[2017-11-26 13:34] VITALS: BP 103/66; PULSE 66; RESP 16; TEMP 36.7
--- NOTE | 2017-11-26 20:23 | PCM.WC.PN ---
(1) Injury of right upper extremity Status: Acute Code(s): S49.91XA - Unspecified injury of right shoulder and upper arm, initial encounter (2) Ulcer of upper extremity Status: Acute Qualifiers: Non-pressure ulcer stage: with fat layer exposed Qualified Code(s): L98.492 - Non-pressure chronic ulcer of skin of other sites with fat layer exposed Code(s): L98.499 - Non-pressure chronic ulcer of skin of other sites with unspecified severity Comment: right (3) Cellulitis of right upper extremity Status: Acute Code(s): L03.113 - Cellulitis of right upper limb Type of Wound Date of Service: 11/26/17 Chief Complaint: BWC injury right upper extremity History of Wound: This is a 67-year-old white male who presents to the wound healing center today for treatment of a ulcer in the right upper extremity. This is a [facility] claim and the injury occurred at work. The patient states that on 10/27/2017, his arm was caught in between 2 rollers. He went to the emergency department and x-rays were negative. He has a past medical history significant for that of hypertension and vitamin D deficiency. His past surgical history includes a hip replacement. On 11/03/2017, the patient followed up at a workers comp clinic and was diagnosed with cellulitis of the right upper extremity and placed on Bactrim. He has tolerating the Bactrim fine. At his previous visit here at the wound center, he was sent to the emergency department due to a moderate amount of uncontrolled bleeding. This was on 11/05/2017, the bleeding was controlled in the emergency department and the patient was sent home. He was unable to get the Santyl ordered for him due to coverage. He is currently been utilizing double antibiotic ointment and wrapping the affected extremity with an Enmanuel wrap. He denies any systemic signs of infection and has 1 day left on an antibiotic. The patient otherwise denies any fever, chills, nausea, vomiting, shortness of breath, chest pain or pressure, palpitations, orthopnea, lower extremity edema, syncope or presyncopal episodes. Progress of Wound: cellulitis resolved, site is gradually improving, still quarter size of eschar in middle of ulcer. Santyl pending prior auth, pt has been doing well with hydrogel - Physical Exam Vital Signs Temp Pulse Resp BP 98.0 F 66 16 103/66 11/26/17 13:34 11/26/17 13:34 11/26/17 13:34 11/26/17 13:34 General: Alert, Oriented x3, Cooperative, No apparent distress HEENT: Atraumatic Cardiovascular: Regular rate Extremities: No edema Skin: Ulcer/ Wound - Ulcer present right upper arm with out signs of infection, quarter size eschar present in center with surrounding slough Neurological: Neuro grossly intact Psych/Mental Status: Normal Affect, Alert and oriented to time, place, person, mood and affect Debridement Note Post-Debridement Measurements/Treatment WC - Nurse 2 - General Ulcer CM Notes Start: 11/12/17 13:16 Freq: Status: Active Protocol: Activity Type Activity Date Activity User E-Sign Co-Sign Detail Recorded Client Recorded Date Recorded By Document 11/12/17 13:37 JS [id number] 11/12/17 13:49 JS Document 11/19/17 13:46 DV [id number] 11/19/17 14:03 DV Document 11/26/17 14:04 TM [id number] 11/26/17 14:06 TM 11/12/17 11/19/17 11/26/17 13:37 13:46 14:04 Wound Center Nurse 2 #1 RIGHT UPPER ARM -Time 13:46 13:51 14:05 -Correct Patient Yes Yes Yes -Correct Side, Site, Position Yes Yes Yes -Correct Procedure Yes Yes Yes -Procedure Performed Yes Yes Yes -Type of Procedure Debridement Debridement Debridement -Clinical Debridement Subcutaneous Subcutaneous Subcutaneous -Post Debridement Size (cm) - Length 14.0 9.5 8.3 -Post Debridement Size (cm) - Width 11.0 4.5 3.2 -Post Debridement Size (cm) - Depth 0.1 0.1 0.1 -Total Square Cm 154.00 42.75 26.56 -Wound/Ulcer Outcome Not Healed Not Healed Not Healed -Ulcer Cleansing Rinsed/ Rinsed/ Rinsed/ Irrigated with Irrigated with Irrigated with Saline Saline Saline -Foul Odor after Cleansing No No No -Bioengineered Tissue No No No -Topical Lidocaine (%) 4 4 -Lidocaine (ml) 10 -Bleeding Controlled with NA Pressure Pressure -Treatment Response Procedure Procedure Procedure Tolerated Well Tolerated Well Tolerated Well Pain Scale: 0-10 Numeric Is Patient Pain Free? Yes Yes Yes Wound debrided: RU arm ulcer Laterality: Right Type of Debridement: Excisional debridement Anesthesia Used: 5% Lidocaine Gel Depth: in the subcutaneous layer Percentage of wound debrided: 100 Instrument Used: 5mm curette, Forceps, - - scissors Tissue Removed: necrotic tissue and slough Severity: Fat Layer Exposed Amount of bleeding with debridement: Mild Bleeding Controlled with: Pressure Patient tolerated procedure well Assessment/Plan Assessment: See diagnoses Plan: The patient was seen and examined at the wound center today and was updated on the plan of care. The patient's wound continues to improve prior to last week. A subcutaneous debridement was performed today. The patient tolerated the procedure well. The patients wound care will consist of: Applying hydrogel daily to the ulcer. Santyl being prior authed, would benefit d/ t the necrotic tissue. Enmanuel wrap for light compression, patient completed of the Bactrim DS for cellulitis which has entirely resolved. Patient educated on the importance of diet on wound healing and instructed to increase protein and vitamin C intake. Patient verbalized understanding. Patient will follow up at wound healing center in one week or sooner if needed. This note was generated with [employer] dictation software. It may contain incorrect words, spelling, and punctuation that were not noted in checking the note before signing. Code Visit 111xxx-113xx: 47497 Autumn subq tissue 20 sq cm/<
--- NOTE | 2017-12-03 11:26 | PN.PCM_ITS ---
(1) Injury of right upper extremity Status: Acute Code(s): S49.91XA - Unspecified injury of right shoulder and upper arm, initial encounter (2) Ulcer of upper extremity Status: Acute Qualifiers: Non-pressure ulcer stage: with fat layer exposed Qualified Code(s): L98.492 - Non-pressure chronic ulcer of skin of other sites with fat layer exposed Code(s): L98.499 - Non-pressure chronic ulcer of skin of other sites with unspecified severity Comment: right (3) Cellulitis of right upper extremity Status: Acute Code(s): L03.113 - Cellulitis of right upper limb Type of Wound Date of Service: 11/26/17 Chief Complaint: BWC injury right upper extremity History of Wound: This is a 67-year-old white male who presents to the wound healing center today for treatment of a ulcer in the right upper extremity. This is a [facility] claim and the injury occurred at work. The patient states that on 10/27/2017, his arm was caught in between 2 rollers. He went to the emergency department and x-rays were negative. He has a past medical history significant for that of hypertension and vitamin D deficiency. His past surgical history includes a hip replacement. On 11/03/2017, the patient followed up at a workers comp clinic and was diagnosed with cellulitis of the right upper extremity and placed on Bactrim. He has tolerating the Bactrim fine. At his previous visit here at the wound center, he was sent to the emergency department due to a moderate amount of uncontrolled bleeding. This was on 2017, the bleeding was controlled in the emergency department and the patient was sent home. He was unable to get the Santyl ordered for him due to coverage. He is currently been utilizing double antibiotic ointment and wrapping the affected extremity with an Enmanuel wrap. He denies any systemic signs of infection and has 1 day left on an antibiotic. The patient otherwise denies any fever, chills, nausea, vomiting, shortness of breath, chest pain or pressure , palpitations, orthopnea, lower extremity edema, syncope or presyncopal episodes. Progress of Wound: cellulitis resolved, site is gradually improving, still quarter size of eschar in middle of ulcer. Santyl pending prior auth, pt has been doing well with hydrogel - Physical Exam Vital Signs Temp Pulse Resp BP 98.0 F 66 16 103/66 11/26/17 13:34 11/26/17 13:34 11/26/17 13:34 11/26/17 13:34 General: Alert, Oriented x3, Cooperative, No apparent distress HEENT: Atraumatic Cardiovascular: Regular rate Extremities: No edema Skin: Ulcer/ Wound - Ulcer present right upper arm with out signs of infection, quarter size eschar present in center with surrounding slough Neurological: Neuro grossly intact Psych/Mental Status: Normal Affect, Alert and oriented to time, place, person, mood and affect Debridement Note Post-Debridement Measurements/Treatment WC - Nurse 2 - General Ulcer CM Notes Start: 11/12/17 13:16 Freq: Status: Active Protocol: Activity Type Activity Date Activity User E-Sign Co-Sign Detail Recorded Client Recorded Date Recorded By Document 11/12/17 13:37 JS [id number] 11/12/17 13:49 JS Document 11/19/17 13:46 DV [id number] 11/19/17 14:03 DV Document 11/26/17 14:04 TM [id number] 11/26/17 14:06 TM 11/12/17 11/19/17 11/26/17 13:37 13:46 14:04 Wound Center Nurse 2 #1 RIGHT UPPER ARM -Time 13:46 13:51 14:05 -Correct Patient Yes Yes Yes -Correct Side, Site, Position Yes Yes Yes -Correct Procedure Yes Yes Yes -Procedure Performed Yes Yes Yes -Type of Procedure Debridement Debridement Debridement -Clinical Debridement Subcutaneous Subcutaneous Subcutaneous -Post Debridement Size (cm) - Length 14.0 9.5 8.3 -Post Debridement Size (cm) - Width 11.0 4.5 3.2 -Post Debridement Size (cm) - Depth 0.1 0.1 0.1 -Total Square Cm 154.00 42.75 26.56 -Wound/Ulcer Outcome Not Healed Not Healed Not Healed -Ulcer Cleansing Rinsed/ Rinsed/ Rinsed/ Irrigated with Irrigated with Irrigated with Saline Saline Saline -Foul Odor after Cleansing No No No -Bioengineered Tissue No No No -Topical Lidocaine (%) 4 4 -Lidocaine (ml) 10 -Bleeding Controlled with NA Pressure Pressure -Treatment Response Procedure Procedure Procedure Tolerated Well Tolerated Well Tolerated Well Pain Scale: 0-10 Numeric Is Patient Pain Free? Yes Yes Yes Wound debrided: RU arm ulcer Laterality: Right Type of Debridement: Excisional debridement Anesthesia Used: 5% Lidocaine Gel Depth: in the subcutaneous layer Percentage of wound debrided: 100 Instrument Used: 5mm curette, Forceps, - - scissors Tissue Removed: necrotic tissue and slough Severity: Fat Layer Exposed Amount of bleeding with debridement: Mild Bleeding Controlled with: Pressure Patient tolerated procedure well Assessment/Plan Assessment: See diagnoses Plan: The patient was seen and examined at the wound center today and was updated on the plan of care. The patient's wound continues to improve prior to last week. A subcutaneous debridement was performed today. The patient tolerated the procedure well. The patients wound care will consist of: Applying hydrogel daily to the ulcer. Santyl being prior authed, would benefit d/ t the necrotic tissue. Enmanuel wrap for light compression, patient completed of the Bactrim DS for cellulitis which has entirely resolved. Patient educated on the importance of diet on wound healing and instructed to increase protein and vitamin C intake. Patient verbalized understanding. Patient will follow up at wound healing center in one week or sooner if needed. This note was generated with [employer] dictation software. It may contain incorrect words, spelling, and punctuation that were not noted in checking the note before signing. Code Visit 111xxx-113xx: 08744 Autumn subq tissue 20 sq cm/<
== END 2017-11-28 23:59 ==
LOC: WC 13:30
PROVIDERS: Family Provider Family Medicine; PCP Family Medicine; Visit Provider Nurse Practitioner Family
DX: L98.492 Non-pressure chronic ulcer of skin of other sites with fat layer exposed (principal); L03.113 Cellulitis of right upper limb; E55.9 Vitamin D deficiency, unspecified; I10 Essential (primary) hypertension; S49.91XA Unspecified injury of right shoulder and upper arm, initial encounter; W31.89XA Contact with other specified machinery, initial encounter; Y92.89 Other specified places as the place of occurrence of the external cause; Y99.0 Civilian activity done for income or pay
CPT/HCPCS: 11042; 11045; 97602; 99204; 99213; G0463

== ENCOUNTER 2017-12-24 13:30 | Outpatient (RCR) | payer OTHER, SELFPAY ==
[2017-11-29 01:08] VITALS: BP 103/66; PULSE 66; RESP 16; TEMP 36.7
[2017-12-03 13:40] VITALS: BP 126/67; PULSE 67; RESP 18; TEMP 36.6
--- NOTE | 2017-12-03 17:36 | PCM.WC.PN ---
(1) Ulcer of upper extremity Status: Acute Current Visit: Yes Qualifiers: Code(s): L98.499 - Non-pressure chronic ulcer of skin of other sites with unspecified severity Comment: right (2) Cellulitis of right upper extremity Status: Acute Current Visit: Yes Code(s): L03.113 - Cellulitis of right upper limb (3) Injury of right upper extremity Status: Acute Current Visit: Yes Code(s): S49.91XA - Unspecified injury of right shoulder and upper arm, initial encounter Type of Wound Date of Service: 12/03/17 Chief Complaint: [facility] injury right upper extremity History of Wound: This is a 67-year-old white male who presents to the wound healing center today for treatment of a ulcer in the right upper extremity. This is a [facility] claim and the injury occurred at work. The patient states that on 10/27/2017, his arm was caught in between 2 rollers. He went to the emergency department and x-rays were negative. He has a past medical history significant for that of hypertension and vitamin D deficiency. His past surgical history includes a hip replacement. On 11/03/2017, the patient followed up at a workers comp clinic and was diagnosed with cellulitis of the right upper extremity and placed on Bactrim. He has tolerating the Bactrim fine. At his previous visit here at the wound center, he was sent to the emergency department due to a moderate amount of uncontrolled bleeding. This was on 11/05/2017, the bleeding was controlled in the emergency department and the patient was sent home. He was unable to get the Santyl ordered for him due to coverage. He is currently been utilizing double antibiotic ointment and wrapping the affected extremity with an Enmanuel wrap. He denies any systemic signs of infection and has 1 day left on an antibiotic. The patient otherwise denies any fever, chills, nausea, vomiting, shortness of breath, chest pain or pressure, palpitations, orthopnea, lower extremity edema, syncope or presyncopal episodes. Progress of Wound: cellulitis resolved, site is gradually improving, eschar in middle of ulcer removed today. Still adherent slough present after debridement. Santyl pending prior auth, pt has been doing well with hydrogel - Physical Exam Vital Signs Temp Pulse Resp BP 98 F 67 18 126/67 H 12/03/17 13:40 12/03/17 13:40 12/03/17 13:40 12/03/17 13:40 General: Alert, Oriented x3, Cooperative, No apparent distress HEENT: Atraumatic Cardiovascular: Regular rate Skin: Ulcer/ Wound - ANGE ulcer with adherent slough to wound bed, no signs of infection at this time Wound Measurements and Assessment WC - Nurse 1 - General Ulcer Measurement Start: 12/03/17 13:39 Freq: Status: Active Protocol: Activity Type Activity Date Activity User E-Sign Co-Sign Detail Recorded Client Recorded Date Recorded By Document 12/03/17 13:40 [facility] [id number] 12/03/17 13:49 [facility] 12/03/17 13:40 Wound Center Nurse 1 [Ulcer Assessment] #1 RIGHT UPPER ARM -Combined with other wound No -Current Size (cm) - Length 4.7 -Current Size (cm) - Width 2.1 -Current Size (cm) - Depth 0.1 -Total Square Cm 9.87 -Photo Taken No -Epithelialization Small 1-33% -Tunneling No -Undermining/Tunneling No -Circular Undermining No -Exudate Amt Medium (34-66%) -Exudate Type Serosanguineous -Wound Margin Distinct, Outline Attached -Granulation Amt Medium (34-66%) -Granulation Quality Red -Slough/Fibrin Yes -Necrosis Amt Medium (34-66%) -Necrotic Tissue Type Adherent Slough -Structure Exposed None/Limited to Skin Breakdown -Texture (Keesha-wound Skin Appearance) Scarring -Moisture (Keesha-wound Skin Appearance Assessed ) -Color (Keesha-wound Skin Appearance) Assessed -Temperature (Keesha-wound Skin No Abnormality Appearance) (Pt Warm) -Tenderness on Palpation (Keesha-wound No Skin Appearance) -Ulcer Cleansing Rinsed/ Irrigated with Saline -Foul Odor after Cleansing No -Anesthetic Used 4% Lidocaine Solution WC - Nurse 2 - General Ulcer CM Notes Start: 12/03/17 13:39 Freq: Status: Active Protocol: Activity Type Activity Date Activity User E-Sign Co-Sign Detail Recorded Client Recorded Date Recorded By Document 12/03/17 14:31 [id number] 12/03/17 14:32 12/03/17 14:31 Wound Center Nurse 2 [Procedure/Treatment] -Time 14:31 -Correct Patient Yes -Correct Side, Site, Position Yes -Correct Procedure Yes -Procedure Performed Yes -Type of Procedure Debridement -Clinical Debridement Subcutaneous -Post Debridement Size (cm) - Length 4.5 -Post Debridement Size (cm) - Width 3.3 -Post Debridement Size (cm) - Depth 0.1 -Total Square Cm 14.85 -Wound/Ulcer Outcome Not Healed -Ulcer Cleansing Rinsed/ Irrigated with Saline -Foul Odor after Cleansing No -Bioengineered Tissue No -Topical Lidocaine (%) 5 -Bleeding Controlled with Pressure -Treatment Response Procedure Tolerated Well [See Physician Procedure note for Specifics] Pain Scale: 0-10 Numeric [Pain] -Is Patient Pain Free? Yes Neurological: Neuro grossly intact Psych/Mental Status: Normal Affect, Appropriate, Alert and oriented to time, place, person, mood and affect Debridement Note Post-Debridement Measurements/Treatment WC - Nurse 2 - General Ulcer CM Notes Start: 12/03/17 13:39 Freq: Status: Active Protocol: Activity Type Activity Date Activity User E-Sign Co-Sign Detail Recorded Client Recorded Date Recorded By Document 12/03/17 14:31 [id number] 12/03/17 14:32 JOHN 12/03/17 14:31 Wound Center Nurse 2 #1 RIGHT UPPER ARM -Time 14:31 -Correct Patient Yes -Correct Side, Site, Position Yes -Correct Procedure Yes -Procedure Performed Yes -Type of Procedure Debridement -Clinical Debridement Subcutaneous -Post Debridement Size (cm) - Length 4.5 -Post Debridement Size (cm) - Width 3.3 -Post Debridement Size (cm) - Depth 0.1 -Total Square Cm 14.85 -Wound/Ulcer Outcome Not Healed -Ulcer Cleansing Rinsed/ Irrigated with Saline -Foul Odor after Cleansing No -Bioengineered Tissue No -Topical Lidocaine (%) 5 -Bleeding Controlled with Pressure -Treatment Response Procedure Tolerated Well Pain Scale: 0-10 Numeric Is Patient Pain Free? Yes Wound debrided: ANGE ulcer Laterality: Right Type of Debridement: Excisional debridement Anesthesia Used: 5% Lidocaine Gel Depth: in the subcutaneous layer Percentage of wound debrided: 100 Instrument Used: 7mm curette, Forceps, - - scissors Tissue Removed: slough and necrotic tissue Severity: Fat Layer Exposed Amount of bleeding with debridement: Mild Bleeding Controlled with: Pressure Patient tolerated procedure well Assessment/Plan Active Problems Injury of right upper extremity (Acute) Ulcer of upper extremity (Acute) right Cellulitis of right upper extremity (Acute) Assessment: See diagnoses Plan: The patient was seen and examined at the wound center today and was updated on the plan of care. The patient's wound is improving prior to last week. A subcutaneous debridement was performed today. The patient tolerated the procedure well. The patients wound care will consist of: Applying hydrogel daily to the ulcer. Santyl PA to be done for adherant slough unable to be debrided with sharp debridement. Enmanuel wrap for light compression, patient completed of the Bactrim DS for cellulitis which has entirely resolved. Patient educated on the importance of diet on wound healing and instructed to increase protein and vitamin C intake. Patient verbalized understanding. Patient will follow up at wound healing center in one week or sooner if needed. This note was generated with [employer] dictation software. It may contain incorrect words, spelling, and punctuation that were not noted in checking the note before signing. Code Visit 111xxx-113xx: 04804 Autumn subq tissue 20 sq cm/<
--- NOTE | 2017-12-03 17:46 | PN.PCM_ITS ---
(1) Ulcer of upper extremity Status: Acute Current Visit: Yes Qualifiers: Code(s): L98.499 - Non-pressure chronic ulcer of skin of other sites with unspecified severity Comment: right (2) Cellulitis of right upper extremity Status: Acute Current Visit: Yes Code(s): L03.113 - Cellulitis of right upper limb (3) Injury of right upper extremity Status: Acute Current Visit: Yes Code(s): S49.91XA - Unspecified injury of right shoulder and upper arm, initial encounter Type of Wound Date of Service: 12/03/17 Chief Complaint: [facility] injury right upper extremity History of Wound: This is a 67-year-old white male who presents to the wound healing center today for treatment of a ulcer in the right upper extremity. This is a [facility] claim and the injury occurred at work. The patient states that on 10/27/2017, his arm was caught in between 2 rollers. He went to the emergency department and x-rays were negative. He has a past medical history significant for that of hypertension and vitamin D deficiency. His past surgical history includes a hip replacement. On 11/03/2017, the patient followed up at a workers comp clinic and was diagnosed with cellulitis of the right upper extremity and placed on Bactrim. He has tolerating the Bactrim fine. At his previous visit here at the wound center, he was sent to the emergency department due to a moderate amount of uncontrolled bleeding. This was on 2017, the bleeding was controlled in the emergency department and the patient was sent home. He was unable to get the Santyl ordered for him due to coverage. He is currently been utilizing double antibiotic ointment and wrapping the affected extremity with an Enmanuel wrap. He denies any systemic signs of infection and has 1 day left on an antibiotic. The patient otherwise denies any fever, chills, nausea, vomiting, shortness of breath, chest pain or pressure , palpitations, orthopnea, lower extremity edema, syncope or presyncopal episodes. Progress of Wound: cellulitis resolved, site is gradually improving, eschar in middle of ulcer removed today. Still adherent slough present after debridement. Santyl pending prior auth, pt has been doing well with hydrogel - Physical Exam Vital Signs Temp Pulse Resp BP 98 F 67 18 126/67 H 12/03/17 13:40 12/03/17 13:40 12/03/17 13:40 12/03/17 13:40 General: Alert, Oriented x3, Cooperative, No apparent distress HEENT: Atraumatic Cardiovascular: Regular rate Skin: Ulcer/ Wound - ANGE ulcer with adherent slough to wound bed, no signs of infection at this time Wound Measurements and Assessment WC - Nurse 1 - General Ulcer Measurement Start: 12/03/17 13:39 Freq: Status: Active Protocol: Activity Type Activity Date Activity User E-Sign Co-Sign Detail Recorded Client Recorded Date Recorded By Document 12/03/17 13:40 [facility] [id number] 12/03/17 13:49 [facility] 12/03/17 13:40 Wound Center Nurse 1 [Ulcer Assessment] #1 RIGHT UPPER ARM -Combined with other wound No -Current Size (cm) - Length 4.7 -Current Size (cm) - Width 2.1 -Current Size (cm) - Depth 0.1 -Total Square Cm 9.87 -Photo Taken No -Epithelialization Small 1-33% -Tunneling No -Undermining/Tunneling No -Circular Undermining No -Exudate Amt Medium (34-66%) -Exudate Type Serosanguineous -Wound Margin Distinct, Outline Attached -Granulation Amt Medium (34-66%) -Granulation Quality Red -Slough/Fibrin Yes -Necrosis Amt Medium (34-66%) -Necrotic Tissue Type Adherent Slough -Structure Exposed None/Limited to Skin Breakdown -Texture (Keesha-wound Skin Appearance) Scarring -Moisture (Keesha-wound Skin Appearance Assessed ) -Color (Keesha-wound Skin Appearance) Assessed -Temperature (Keesha-wound Skin No Abnormality Appearance) (Pt Warm) -Tenderness on Palpation (Keesha-wound No Skin Appearance) -Ulcer Cleansing Rinsed/ Irrigated with Saline -Foul Odor after Cleansing No -Anesthetic Used 4% Lidocaine Solution WC - Nurse 2 - General Ulcer CM Notes Start: 12/03/17 13:39 Freq: Status: Active Protocol: Activity Type Activity Date Activity User E-Sign Co-Sign Detail Recorded Client Recorded Date Recorded By Document 12/03/17 14:31 [id number] 12/03/17 14:32 12/03/17 14:31 Wound Center Nurse 2 [Procedure/Treatment] -Time 14:31 -Correct Patient Yes -Correct Side, Site, Position Yes -Correct Procedure Yes -Procedure Performed Yes -Type of Procedure Debridement -Clinical Debridement Subcutaneous -Post Debridement Size (cm) - Length 4.5 -Post Debridement Size (cm) - Width 3.3 -Post Debridement Size (cm) - Depth 0.1 -Total Square Cm 14.85 -Wound/Ulcer Outcome Not Healed -Ulcer Cleansing Rinsed/ Irrigated with Saline -Foul Odor after Cleansing No -Bioengineered Tissue No -Topical Lidocaine (%) 5 -Bleeding Controlled with Pressure -Treatment Response Procedure Tolerated Well [See Physician Procedure note for Specifics] Pain Scale: 0-10 Numeric [Pain] -Is Patient Pain Free? Yes Neurological: Neuro grossly intact Psych/Mental Status: Normal Affect, Appropriate, Alert and oriented to time, place, person, mood and affect Debridement Note Post-Debridement Measurements/Treatment WC - Nurse 2 - General Ulcer CM Notes Start: 12/03/17 13:39 Freq: Status: Active Protocol: Activity Type Activity Date Activity User E-Sign Co-Sign Detail Recorded Client Recorded Date Recorded By Document 12/03/17 14:31 [id number] 12/03/17 14:32 JOHN 12/03/17 14:31 Wound Center Nurse 2 #1 RIGHT UPPER ARM -Time 14:31 -Correct Patient Yes -Correct Side, Site, Position Yes -Correct Procedure Yes -Procedure Performed Yes -Type of Procedure Debridement -Clinical Debridement Subcutaneous -Post Debridement Size (cm) - Length 4.5 -Post Debridement Size (cm) - Width 3.3 -Post Debridement Size (cm) - Depth 0.1 -Total Square Cm 14.85 -Wound/Ulcer Outcome Not Healed -Ulcer Cleansing Rinsed/ Irrigated with Saline -Foul Odor after Cleansing No -Bioengineered Tissue No -Topical Lidocaine (%) 5 -Bleeding Controlled with Pressure -Treatment Response Procedure Tolerated Well Pain Scale: 0-10 Numeric Is Patient Pain Free? Yes Wound debrided: ANGE ulcer Laterality: Right Type of Debridement: Excisional debridement Anesthesia Used: 5% Lidocaine Gel Depth: in the subcutaneous layer Percentage of wound debrided: 100 Instrument Used: 7mm curette, Forceps, - - scissors Tissue Removed: slough and necrotic tissue Severity: Fat Layer Exposed Amount of bleeding with debridement: Mild Bleeding Controlled with: Pressure Patient tolerated procedure well Assessment/Plan Active Problems Injury of right upper extremity (Acute) Ulcer of upper extremity (Acute) right Cellulitis of right upper extremity (Acute) Assessment: See diagnoses Plan: The patient was seen and examined at the wound center today and was updated on the plan of care. The patient's wound is improving prior to last week. A subcutaneous debridement was performed today. The patient tolerated the procedure well. The patients wound care will consist of: Applying hydrogel daily to the ulcer. Santyl PA to be done for adherant slough unable to be debrided with sharp debridement. Enmanuel wrap for light compression, patient completed of the Bactrim DS for cellulitis which has entirely resolved. Patient educated on the importance of diet on wound healing and instructed to increase protein and vitamin C intake. Patient verbalized understanding. Patient will follow up at wound healing center in one week or sooner if needed. This note was generated with [employer] dictation software. It may contain incorrect words, spelling, and punctuation that were not noted in checking the note before signing. Code Visit 111xxx-113xx: 98893 Autumn subq tissue 20 sq cm/<
[2017-12-10 14:06] VITALS: BP 117/86; PULSE 63; RESP 16; TEMP 37
--- NOTE | 2017-12-10 14:21 | PN.PCM_ITS ---
(1) Ulcer of upper extremity Status: Acute Current Visit: Yes Qualifiers: Code(s): L98.499 - Non-pressure chronic ulcer of skin of other sites with unspecified severity Comment: right (2) Cellulitis of right upper extremity Status: Acute Current Visit: Yes Code(s): L03.113 - Cellulitis of right upper limb (3) Injury of right upper extremity Status: Acute Current Visit: Yes Code(s): S49.91XA - Unspecified injury of right shoulder and upper arm, initial encounter Type of Wound Date of Service: 12/10/17 Chief Complaint: [facility] injury right upper extremity History of Wound: This is a 67-year-old white male who presents to the wound healing center today for treatment of a ulcer in the right upper extremity. This is a [facility] claim and the injury occurred at work. The patient states that on 10/27/2017, his arm was caught in between 2 rollers. He went to the emergency department and x-rays were negative. He has a past medical history significant for that of hypertension and vitamin D deficiency. His past surgical history includes a hip replacement. On 11/03/2017, the patient followed up at a workers comp clinic and was diagnosed with cellulitis of the right upper extremity and placed on Bactrim. He has tolerating the Bactrim fine. At his previous visit here at the wound center, he was sent to the emergency department due to a moderate amount of uncontrolled bleeding. This was on 2017, the bleeding was controlled in the emergency department and the patient was sent home. He was unable to get the Santyl ordered for him due to coverage. He is currently been utilizing double antibiotic ointment and wrapping the affected extremity with an Enmanuel wrap. He denies any systemic signs of infection and has 1 day left on an antibiotic. The patient otherwise denies any fever, chills, nausea, vomiting, shortness of breath, chest pain or pressure , palpitations, orthopnea, lower extremity edema, syncope or presyncopal episodes. Progress of Wound: cellulitis resolved, site is gradually improving, pt has been doing well with hydrogel - Physical Exam Vital Signs Temp Pulse Resp BP 98.6 F 63 16 117/86 H 12/10/17 14:06 12/10/17 14:06 12/10/17 14:06 07/12/18 14:06 General: Alert, Oriented x3, Cooperative, No apparent distress HEENT: Atraumatic Cardiovascular: Regular rate Extremities: No edema Skin: Ulcer/ Wound - ANGE ulcer with adherant slough in wound bed, no signs of acute infection at this time. Wound Measurements and Assessment WC - Nurse 1 - General Ulcer Measurement Start: 12/03/17 13:39 Freq: Status: Active Protocol: Activity Type Activity Date Activity User E-Sign Co-Sign Detail Recorded Client Recorded Date Recorded By Document 12/10/17 14:06 [id number] 12/10/17 14:08 12/10/17 14:06 Wound Center Nurse 1 [Ulcer Assessment] #1 RIGHT UPPER ARM -Combined with other wound No -Current Size (cm) - Length 3.7 -Current Size (cm) - Width 2.1 -Current Size (cm) - Depth 0.1 -Total Square Cm 7.77 -Photo Taken No -Epithelialization None Present -Tunneling No -Undermining/Tunneling No -Circular Undermining No -Exudate Amt Medium (34-66%) -Exudate Type Serosanguineous -Wound Margin Distinct, Outline Attached -Granulation Amt Small (1-33%) -Granulation Quality Slaughters Red -Slough/Fibrin Yes -Necrosis Amt None Present (0 %) -Necrotic Tissue Type Adherent Slough -Structure Exposed None/Limited to Skin Breakdown -Texture (Keesha-wound Skin Appearance) Assessed Scarring -Moisture (Keesha-wound Skin Appearance No Abnormality ) Assessed -Color (Keesha-wound Skin Appearance) Assessed Erythema -Temperature (Keesha-wound Skin No Abnormality Appearance) (Pt Warm) -Tenderness on Palpation (Keesha-wound No Skin Appearance) -Ulcer Cleansing Rinsed/ Irrigated with Saline -Foul Odor after Cleansing No -Anesthetic Used 4% Lidocaine Solution [Edema Assessment] -Lower Limb Edema Present NA Neurological: Cranial nerves II-XII grossly intact, Neuro grossly intact Psych/Mental Status: Normal Affect, Appropriate, Alert and oriented to time, place, person, mood and affect Debridement Note Post-Debridement Measurements/Treatment WC - Nurse 2 - General Ulcer CM Notes Start: 12/03/17 13:39 Freq: Status: Active Protocol: Activity Type Activity Date Activity User E-Sign Co-Sign Detail Recorded Client Recorded Date Recorded By Document 12/03/17 14:31 [id number] 12/03/17 14:32 JF 12/03/17 14:31 Wound Center Nurse 2 #1 RIGHT UPPER ARM -Time 14:31 -Correct Patient Yes -Correct Side, Site, Position Yes -Correct Procedure Yes -Procedure Performed Yes -Type of Procedure Debridement -Clinical Debridement Subcutaneous -Post Debridement Size (cm) - Length 4.5 -Post Debridement Size (cm) - Width 3.3 -Post Debridement Size (cm) - Depth 0.1 -Total Square Cm 14.85 -Wound/Ulcer Outcome Not Healed -Ulcer Cleansing Rinsed/ Irrigated with Saline -Foul Odor after Cleansing No -Bioengineered Tissue No -Topical Lidocaine (%) 5 -Bleeding Controlled with Pressure -Treatment Response Procedure Tolerated Well Pain Scale: 0-10 Numeric Is Patient Pain Free? Yes Wound debrided: ANGE ulcer Laterality: Right Type of Debridement: Excisional debridement Anesthesia Used: 5% Lidocaine Gel Depth: in the subcutaneous layer Percentage of wound debrided: 100 Instrument Used: 5mm curette Tissue Removed: slough and devitalized tissue Severity: Fat Layer Exposed Amount of bleeding with debridement: Mild Bleeding Controlled with: Pressure Patient tolerated procedure well Assessment/Plan Active Problems Injury of right upper extremity (Acute) Ulcer of upper extremity (Acute) right Cellulitis of right upper extremity (Acute) Assessment: See diagnoses Plan: The patient was seen and examined at the wound center today and was updated on the plan of care. The patient's wound is improving prior to last week. A subcutaneous debridement was performed today. The patient tolerated the procedure well. The patients wound care will consist of: Applying hydrogel daily to the ulcer.Enmanuel wrap for light compression, patient completed the Bactrim DS for cellulitis which has entirely resolved. Patient educated on the importance of diet on wound healing and instructed to increase protein and vitamin C intake. Patient verbalized understanding. Patient will follow up at wound healing center in one week or sooner if needed. This note was generated with [employer] dictation software. It may contain incorrect words, spelling, and punctuation that were not noted in checking the note before signing. Code Visit 111xxx-113xx: 16724 Autumn subq tissue 20 sq cm/<
[2017-12-17 13:18] VITALS: BP 112/67; PULSE 58; RESP 16; TEMP 37.1
--- NOTE | 2017-12-17 15:52 | PCM.WC.PN ---
(1) Ulcer of upper extremity Status: Acute Qualifiers: Code(s): L98.499 - Non-pressure chronic ulcer of skin of other sites with unspecified severity Comment: right (2) Cellulitis of right upper extremity Status: Acute Code(s): L03.113 - Cellulitis of right upper limb (3) Injury of right upper extremity Status: Acute Code(s): S49.91XA - Unspecified injury of right shoulder and upper arm, initial encounter Type of Wound Date of Service: 12/22/17 Chief Complaint: BWC injury right upper extremity History of Wound: This is a 67-year-old white male who presents to the wound healing center today for treatment of a ulcer in the right upper extremity. This is a [facility] claim and the injury occurred at work. The patient states that on 10/27/2017, his arm was caught in between 2 rollers. He went to the emergency department and x-rays were negative. He has a past medical history significant for that of hypertension and vitamin D deficiency. His past surgical history includes a hip replacement. On 11/03/2017, the patient followed up at a workers comp clinic and was diagnosed with cellulitis of the right upper extremity and placed on Bactrim. He has tolerating the Bactrim fine. At his previous visit here at the wound center, he was sent to the emergency department due to a moderate amount of uncontrolled bleeding. This was on 11/05/2017, the bleeding was controlled in the emergency department and the patient was sent home. He was unable to get the Santyl ordered for him due to coverage. He is currently been utilizing double antibiotic ointment and wrapping the affected extremity with an Enmanuel wrap. He denies any systemic signs of infection and has 1 day left on an antibiotic. The patient otherwise denies any fever, chills, nausea, vomiting, shortness of breath, chest pain or pressure, palpitations, orthopnea, lower extremity edema, syncope or presyncopal episodes. Progress of Wound: cellulitis resolved, site is gradually improving, pt has been doing well with hydrogel, however site is becoming slightly macerated - Physical Exam Vital Signs Temp Pulse Resp BP 98.7 F 58 L 16 112/67 12/17/17 13:18 12/17/17 13:18 12/17/17 13:18 12/17/17 13:18 General: Alert, Oriented x3, Cooperative HEENT: Atraumatic Cardiovascular: Regular rate Extremities: No edema Skin: Ulcer/ Wound - ANGE ulcer with adherant slough and macerated wound edges Neurological: Neuro grossly intact Psych/Mental Status: Normal Affect, Appropriate, Alert and oriented to time, place, person, mood and affect Debridement Note Post-Debridement Measurements/Treatment WC - Nurse 2 - General Ulcer CM Notes Start: 12/03/17 13:39 Freq: Status: Active Protocol: Activity Type Activity Date Activity User E-Sign Co-Sign Detail Recorded Client Recorded Date Recorded By Document 12/03/17 14:31 JF [id number] 12/03/17 14:32 JF Document 12/10/17 14:21 TM [id number] 12/10/17 14:22 TM Document 12/17/17 14:11 [id number] 12/17/17 14:13 12/03/17 12/10/17 12/17/17 14:31 14:21 14:11 Wound Center Nurse 2 #1 RIGHT UPPER ARM -Time 14:31 14:22 14:11 -Correct Patient Yes Yes Yes -Correct Side, Site, Position Yes Yes Yes -Correct Procedure Yes Yes Yes -Procedure Performed Yes Yes Yes -Type of Procedure Debridement Debridement Debridement -Clinical Debridement Subcutaneous Subcutaneous Subcutaneous -Post Debridement Size (cm) - Length 4.5 4.0 3.5 -Post Debridement Size (cm) - Width 3.3 2.2 1.9 -Post Debridement Size (cm) - Depth 0.1 0.1 0.1 -Total Square Cm 14.85 8.80 6.65 -Wound/Ulcer Outcome Not Healed Not Healed Not Healed -Ulcer Cleansing Rinsed/ Rinsed/ Rinsed/ Irrigated with Irrigated with Irrigated with Saline Saline Saline -Foul Odor after Cleansing No No No -Bioengineered Tissue No No No -Topical Lidocaine (%) 5 4 4 -Lidocaine (ml) 5 -Bleeding Controlled with Pressure Pressure NA -Treatment Response Procedure Procedure Procedure Tolerated Well Tolerated Well Tolerated Well Pain Scale: 0-10 Numeric Is Patient Pain Free? Yes Yes Yes Wound debrided: ANGE ulcer Laterality: Right Type of Debridement: Excisional debridement Anesthesia Used: 5% Lidocaine Gel Depth: in the subcutaneous layer Percentage of wound debrided: 100 Instrument Used: 5mm curette Tissue Removed: slough and macerated edges Severity: Fat Layer Exposed Amount of bleeding with debridement: Mild Bleeding Controlled with: Pressure Patient tolerated procedure well Assessment/Plan Assessment: See diagnoses Plan: The patient was seen and examined at the wound center today and was updated on the plan of care. The patient's wound is improving prior to last week. A subcutaneous debridement was performed today. The patient tolerated the procedure well. The patients wound care will consist of: Applying promogran, adaptic, and gauze daily to the ulcer.Enmanuel wrap for light compression, patient completed the Bactrim DS for cellulitis which has entirely resolved. Patient educated on the importance of diet on wound healing and instructed to increase protein and vitamin C intake. Patient verbalized understanding. Patient will follow up at wound healing center in one week or sooner if needed. This note was generated with [employer] dictation software. It may contain incorrect words, spelling, and punctuation that were not noted in checking the note before signing. Code Visit 111xxx-113xx: 53866 Autumn subq tissue 20 sq cm/<
--- NOTE | 2017-12-22 15:55 | PN.PCM_ITS ---
(1) Ulcer of upper extremity Status: Acute Qualifiers: Code(s): L98.499 - Non-pressure chronic ulcer of skin of other sites with unspecified severity Comment: right (2) Cellulitis of right upper extremity Status: Acute Code(s): L03.113 - Cellulitis of right upper limb (3) Injury of right upper extremity Status: Acute Code(s): S49.91XA - Unspecified injury of right shoulder and upper arm, initial encounter Type of Wound Date of Service: 12/22/17 Chief Complaint: BWC injury right upper extremity History of Wound: This is a 67-year-old white male who presents to the wound healing center today for treatment of a ulcer in the right upper extremity. This is a [facility] claim and the injury occurred at work. The patient states that on 10/27/2017, his arm was caught in between 2 rollers. He went to the emergency department and x-rays were negative. He has a past medical history significant for that of hypertension and vitamin D deficiency. His past surgical history includes a hip replacement. On 11/03/2017, the patient followed up at a workers comp clinic and was diagnosed with cellulitis of the right upper extremity and placed on Bactrim. He has tolerating the Bactrim fine. At his previous visit here at the wound center, he was sent to the emergency department due to a moderate amount of uncontrolled bleeding. This was on 2017, the bleeding was controlled in the emergency department and the patient was sent home. He was unable to get the Santyl ordered for him due to coverage. He is currently been utilizing double antibiotic ointment and wrapping the affected extremity with an Enmanuel wrap. He denies any systemic signs of infection and has 1 day left on an antibiotic. The patient otherwise denies any fever, chills, nausea, vomiting, shortness of breath, chest pain or pressure , palpitations, orthopnea, lower extremity edema, syncope or presyncopal episodes. Progress of Wound: cellulitis resolved, site is gradually improving, pt has been doing well with hydrogel, however site is becoming slightly macerated - Physical Exam Vital Signs Temp Pulse Resp BP 98.7 F 58 L 16 112/67 12/17/17 13:18 12/17/17 13:18 12/17/17 13:18 12/17/17 13:18 General: Alert, Oriented x3, Cooperative HEENT: Atraumatic Cardiovascular: Regular rate Extremities: No edema Skin: Ulcer/ Wound - ANGE ulcer with adherant slough and macerated wound edges Neurological: Neuro grossly intact Psych/Mental Status: Normal Affect, Appropriate, Alert and oriented to time, place, person, mood and affect Debridement Note Post-Debridement Measurements/Treatment WC - Nurse 2 - General Ulcer CM Notes Start: 12/03/17 13:39 Freq: Status: Active Protocol: Activity Type Activity Date Activity User E-Sign Co-Sign Detail Recorded Client Recorded Date Recorded By Document 12/03/17 14:31 JF [id number] 12/03/17 14:32 JF Document 12/10/17 14:21 TM [id number] 12/10/17 14:22 TM Document 12/17/17 14:11 [id number] 12/17/17 14:13 12/03/17 12/10/17 12/17/17 14:31 14:21 14:11 Wound Center Nurse 2 #1 RIGHT UPPER ARM -Time 14:31 14:22 14:11 -Correct Patient Yes Yes Yes -Correct Side, Site, Position Yes Yes Yes -Correct Procedure Yes Yes Yes -Procedure Performed Yes Yes Yes -Type of Procedure Debridement Debridement Debridement -Clinical Debridement Subcutaneous Subcutaneous Subcutaneous -Post Debridement Size (cm) - Length 4.5 4.0 3.5 -Post Debridement Size (cm) - Width 3.3 2.2 1.9 -Post Debridement Size (cm) - Depth 0.1 0.1 0.1 -Total Square Cm 14.85 8.80 6.65 -Wound/Ulcer Outcome Not Healed Not Healed Not Healed -Ulcer Cleansing Rinsed/ Rinsed/ Rinsed/ Irrigated with Irrigated with Irrigated with Saline Saline Saline -Foul Odor after Cleansing No No No -Bioengineered Tissue No No No -Topical Lidocaine (%) 5 4 4 -Lidocaine (ml) 5 -Bleeding Controlled with Pressure Pressure NA -Treatment Response Procedure Procedure Procedure Tolerated Well Tolerated Well Tolerated Well Pain Scale: 0-10 Numeric Is Patient Pain Free? Yes Yes Yes Wound debrided: ANGE ulcer Laterality: Right Type of Debridement: Excisional debridement Anesthesia Used: 5% Lidocaine Gel Depth: in the subcutaneous layer Percentage of wound debrided: 100 Instrument Used: 5mm curette Tissue Removed: slough and macerated edges Severity: Fat Layer Exposed Amount of bleeding with debridement: Mild Bleeding Controlled with: Pressure Patient tolerated procedure well Assessment/Plan Assessment: See diagnoses Plan: The patient was seen and examined at the wound center today and was updated on the plan of care. The patient's wound is improving prior to last week. A subcutaneous debridement was performed today. The patient tolerated the procedure well. The patients wound care will consist of: Applying promogran , adaptic, and gauze daily to the ulcer.Enmanuel wrap for light compression, patient completed the Bactrim DS for cellulitis which has entirely resolved. Patient educated on the importance of diet on wound healing and instructed to increase protein and vitamin C intake. Patient verbalized understanding. Patient will follow up at wound healing center in one week or sooner if needed. This note was generated with [employer] dictation software. It may contain incorrect words, spelling, and punctuation that were not noted in checking the note before signing. Code Visit 111xxx-113xx: 11287 Autumn subq tissue 20 sq cm/<
[2017-12-24 13:27] VITALS: BP 133/69; PULSE 61; RESP 16; TEMP 36.6
--- NOTE | 2017-12-24 17:25 | PCM.WC.PN ---
(1) Ulcer of upper extremity Status: Acute Current Visit: Yes Qualifiers: Code(s): L98.499 - Non-pressure chronic ulcer of skin of other sites with unspecified severity Comment: right (2) Cellulitis of right upper extremity Status: Acute Current Visit: Yes Code(s): L03.113 - Cellulitis of right upper limb (3) Injury of right upper extremity Status: Acute Current Visit: Yes Code(s): S49.91XA - Unspecified injury of right shoulder and upper arm, initial encounter Type of Wound Date of Service: 12/24/17 Chief Complaint: [facility] injury right upper extremity History of Wound: This is a 67-year-old white male who presents to the wound healing center today for treatment of a ulcer in the right upper extremity. This is a [facility] claim and the injury occurred at work. The patient states that on 10/27/2017, his arm was caught in between 2 rollers. He went to the emergency department and x-rays were negative. He has a past medical history significant for that of hypertension and vitamin D deficiency. His past surgical history includes a hip replacement. On 11/03/2017, the patient followed up at a workers comp clinic and was diagnosed with cellulitis of the right upper extremity and placed on Bactrim. He has tolerating the Bactrim fine. At his previous visit here at the wound center, he was sent to the emergency department due to a moderate amount of uncontrolled bleeding. This was on 11/05/2017, the bleeding was controlled in the emergency department and the patient was sent home. He was unable to get the Santyl ordered for him due to coverage. He is currently been utilizing double antibiotic ointment and wrapping the affected extremity with an Enmanuel wrap. He denies any systemic signs of infection and has 1 day left on an antibiotic. The patient otherwise denies any fever, chills, nausea, vomiting, shortness of breath, chest pain or pressure, palpitations, orthopnea, lower extremity edema, syncope or presyncopal episodes. Progress of Wound: cellulitis resolved, site is gradually improving, pt has been doing well with promogran and adaptic - Physical Exam Vital Signs Temp Pulse Resp BP 97.8 F 61 16 133/69 H 12/24/17 13:27 12/24/17 13:27 12/24/17 13:27 12/24/17 13:27 General: Alert, Oriented x3, Cooperative, No apparent distress HEENT: Atraumatic Cardiovascular: Regular rate Extremities: No clubbing, No cyanosis, No edema Skin: Ulcer/ Wound - ulcer present ANGE with adherant slough to wound bed, no signs of infection at this time. Wound Measurements and Assessment WC - Nurse 1 - General Ulcer Measurement Start: 12/03/17 13:39 Freq: Status: Active Protocol: Activity Type Activity Date Activity User E-Sign Co-Sign Detail Recorded Client Recorded Date Recorded By Document 12/24/17 13:27 ID [id number] 12/24/17 13:33 ID 12/24/17 13:27 Wound Center Nurse 1 [Ulcer Assessment] #1 RIGHT UPPER ARM -Combined with other wound No -Current Size (cm) - Length 3.0 -Current Size (cm) - Width 1.2 -Current Size (cm) - Depth 0.1 -Total Square Cm 3.60 -Photo Taken No -Epithelialization Small 1-33% -Tunneling No -Undermining/Tunneling No -Circular Undermining No -Wound Margin Flat & Intact -Granulation Amt Large (67-100%) -Granulation Quality [place] Red -Slough/Fibrin Yes -Necrosis Amt Small (1-33%) -Necrotic Tissue Type Adherent Slough -Texture (Keesha-wound Skin Appearance) Assessed -Moisture (Keesha-wound Skin Appearance Assessed ) Maceration -Color (Keesha-wound Skin Appearance) Assessed -Temperature (Keesha-wound Skin No Abnormality Appearance) (Pt Warm) -Tenderness on Palpation (Keesha-wound No Skin Appearance) -Ulcer Cleansing Rinsed/ Irrigated with Saline -Foul Odor after Cleansing No -Anesthetic Used 4% Lidocaine Solution [Edema Assessment] -Lower Limb Edema Present NA - Nurse 2 - General Ulcer CM Notes Start: 12/03/17 13:39 Freq: Status: Active Protocol: Activity Type Activity Date Activity User E-Sign Co-Sign Detail Recorded Client Recorded Date Recorded By Document 12/24/17 14:28 [id number] 12/24/17 14:29 12/24/17 14:28 Wound Center Nurse 2 [Procedure/Treatment] #1 RIGHT UPPER ARM -Time 14:28 -Correct Patient Yes -Correct Side, Site, Position Yes -Correct Procedure Yes -Procedure Performed Yes -Type of Procedure Debridement -Clinical Debridement Subcutaneous -Post Debridement Size (cm) - Length 2.8 -Post Debridement Size (cm) - Width 1.5 -Post Debridement Size (cm) - Depth 0.1 -Total Square Cm 4.20 -Wound/Ulcer Outcome Not Healed -Ulcer Cleansing Rinsed/ Irrigated with Saline -Foul Odor after Cleansing No -Bioengineered Tissue No -Bleeding Controlled with NA -Treatment Response Procedure Tolerated Well [See Physician Procedure note for Specifics] Pain Scale: 0-10 Numeric [Pain] -Is Patient Pain Free? Yes Neurological: Cranial nerves II-XII grossly intact, Neuro grossly intact Psych/Mental Status: Normal Affect, Appropriate, Alert and oriented to time, place, person, mood and affect Debridement Note Post-Debridement Measurements/Treatment WC - Nurse 2 - General Ulcer CM Notes Start: 12/03/17 13:39 Freq: Status: Active Protocol: Activity Type Activity Date Activity User E-Sign Co-Sign Detail Recorded Client Recorded Date Recorded By Document 12/03/17 14:31 [id number] 12/03/17 14:32 Document 12/10/17 14:21 [id number] 12/10/17 14:22 Document 12/17/17 14:11 JS [id number] 12/17/17 14:13 Document 12/24/17 14:28 [id number] 12/24/17 14:29 12/03/17 12/10/17 12/17/17 14:31 14:21 14:11 Wound Center Nurse 2 #1 RIGHT UPPER ARM -Time 14:31 14:22 14:11 -Correct Patient Yes Yes Yes -Correct Side, Site, Position Yes Yes Yes -Correct Procedure Yes Yes Yes -Procedure Performed Yes Yes Yes -Type of Procedure Debridement Debridement Debridement -Clinical Debridement Subcutaneous Subcutaneous Subcutaneous -Post Debridement Size (cm) - Length 4.5 4.0 3.5 -Post Debridement Size (cm) - Width 3.3 2.2 1.9 -Post Debridement Size (cm) - Depth 0.1 0.1 0.1 -Total Square Cm 14.85 8.80 6.65 -Wound/Ulcer Outcome Not Healed Not Healed Not Healed -Ulcer Cleansing Rinsed/ Rinsed/ Rinsed/ Irrigated with Irrigated with Irrigated with Saline Saline Saline -Foul Odor after Cleansing No No No -Bioengineered Tissue No No No -Topical Lidocaine (%) 5 4 4 -Lidocaine (ml) 5 -Bleeding Controlled with Pressure Pressure NA -Treatment Response Procedure Procedure Procedure Tolerated Well Tolerated Well Tolerated Well Pain Scale: 0-10 Numeric Is Patient Pain Free? Yes Yes Yes 12/24/17 14:28 Wound Center Nurse 2 #1 RIGHT UPPER ARM -Time 14:28 -Correct Patient Yes -Correct Side, Site, Position Yes -Correct Procedure Yes -Procedure Performed Yes -Type of Procedure Debridement -Clinical Debridement Subcutaneous -Post Debridement Size (cm) - Length 2.8 -Post Debridement Size (cm) - Width 1.5 -Post Debridement Size (cm) - Depth 0.1 -Total Square Cm 4.20 -Wound/Ulcer Outcome Not Healed -Ulcer Cleansing Rinsed/ Irrigated with Saline -Foul Odor after Cleansing No -Bioengineered Tissue No -Topical Lidocaine (%) -Lidocaine (ml) -Bleeding Controlled with NA -Treatment Response Procedure Tolerated Well Pain Scale: 0-10 Numeric Is Patient Pain Free? Yes Wound debrided: Right upper arm ulcer Laterality: Right Type of Debridement: Excisional debridement Anesthesia Used: 5% Lidocaine Gel Depth: in the subcutaneous layer Percentage of wound debrided: 100 Instrument Used: 5mm curette Tissue Removed: slough and devitalized tissue Severity: Fat Layer Exposed Amount of bleeding with debridement: Mild Bleeding Controlled with: Pressure Patient tolerated procedure well Assessment/Plan Active Problems Injury of right upper extremity (Acute) Ulcer of upper extremity (Acute) right Cellulitis of right upper extremity (Acute) Assessment: See diagnoses Plan: The patient was seen and examined at the wound center today and was updated on the plan of care. The patient's wound is improving prior to last week. A subcutaneous debridement was performed today. The patient tolerated the procedure well. The patients wound care will consist of: Applying promogran, adaptic, and gauze daily to the ulcer.Enmaneul wrap for light compression, patient completed the Bactrim DS for cellulitis which has entirely resolved. Patient educated on the importance of diet on wound healing and instructed to increase protein and vitamin C intake. Patient verbalized understanding. Patient will follow up at wound healing center in one week or sooner if needed. This note was generated with [employer] software. It may contain incorrect words, spelling, and punctuation that were not noted in checking the note before signing. Code Visit 111xxx-113xx: 26363 Autumn subq tissue 20 sq cm/<
--- NOTE | 2017-12-25 13:27 | PN.PCM_ITS ---
(1) Ulcer of upper extremity Status: Acute Current Visit: Yes Qualifiers: Code(s): L98.499 - Non-pressure chronic ulcer of skin of other sites with unspecified severity Comment: right (2) Cellulitis of right upper extremity Status: Acute Current Visit: Yes Code(s): L03.113 - Cellulitis of right upper limb (3) Injury of right upper extremity Status: Acute Current Visit: Yes Code(s): S49.91XA - Unspecified injury of right shoulder and upper arm, initial encounter Type of Wound Date of Service: 12/24/17 Chief Complaint: [facility] injury right upper extremity History of Wound: This is a 67-year-old white male who presents to the wound healing center today for treatment of a ulcer in the right upper extremity. This is a [facility] claim and the injury occurred at work. The patient states that on 10/27/2017, his arm was caught in between 2 rollers. He went to the emergency department and x-rays were negative. He has a past medical history significant for that of hypertension and vitamin D deficiency. His past surgical history includes a hip replacement. On 11/03/2017, the patient followed up at a workers comp clinic and was diagnosed with cellulitis of the right upper extremity and placed on Bactrim. He has tolerating the Bactrim fine. At his previous visit here at the wound center, he was sent to the emergency department due to a moderate amount of uncontrolled bleeding. This was on 2017, the bleeding was controlled in the emergency department and the patient was sent home. He was unable to get the Santyl ordered for him due to coverage. He is currently been utilizing double antibiotic ointment and wrapping the affected extremity with an Enmanuel wrap. He denies any systemic signs of infection and has 1 day left on an antibiotic. The patient otherwise denies any fever, chills, nausea, vomiting, shortness of breath, chest pain or pressure , palpitations, orthopnea, lower extremity edema, syncope or presyncopal episodes. Progress of Wound: cellulitis resolved, site is gradually improving, pt has been doing well with promogran and adaptic - Physical Exam Vital Signs Temp Pulse Resp BP 97.8 F 61 16 133/69 H 12/24/17 13:27 12/24/17 13:27 12/24/17 13:27 12/24/17 13:27 General: Alert, Oriented x3, Cooperative, No apparent distress HEENT: Atraumatic Cardiovascular: Regular rate Extremities: No clubbing, No cyanosis, No edema Skin: Ulcer/ Wound - ulcer present ANGE with adherant slough to wound bed, no signs of infection at this time. Wound Measurements and Assessment WC - Nurse 1 - General Ulcer Measurement Start: 12/03/17 13:39 Freq: Status: Active Protocol: Activity Type Activity Date Activity User E-Sign Co-Sign Detail Recorded Client Recorded Date Recorded By Document 12/24/17 13:27 GA [id number] 12/24/17 13:33 GA 12/24/17 13:27 Wound Center Nurse 1 [Ulcer Assessment] #1 RIGHT UPPER ARM -Combined with other wound No -Current Size (cm) - Length 3.0 -Current Size (cm) - Width 1.2 -Current Size (cm) - Depth 0.1 -Total Square Cm 3.60 -Photo Taken No -Epithelialization Small 1-33% -Tunneling No -Undermining/Tunneling No -Circular Undermining No -Wound Margin Flat & Intact -Granulation Amt Large (67-100%) -Granulation Quality [place] Red -Slough/Fibrin Yes -Necrosis Amt Small (1-33%) -Necrotic Tissue Type Adherent Slough -Texture (Keesha-wound Skin Appearance) Assessed -Moisture (Keesha-wound Skin Appearance Assessed ) Maceration -Color (Keesha-wound Skin Appearance) Assessed -Temperature (Keesha-wound Skin No Abnormality Appearance) (Pt Warm) -Tenderness on Palpation (Keesha-wound No Skin Appearance) -Ulcer Cleansing Rinsed/ Irrigated with Saline -Foul Odor after Cleansing No -Anesthetic Used 4% Lidocaine Solution [Edema Assessment] -Lower Limb Edema Present NA - Nurse 2 - General Ulcer CM Notes Start: 12/03/17 13:39 Freq: Status: Active Protocol: Activity Type Activity Date Activity User E-Sign Co-Sign Detail Recorded Client Recorded Date Recorded By Document 12/24/17 14:28 [id number] 12/24/17 14:29 12/24/17 14:28 Wound Center Nurse 2 [Procedure/Treatment] #1 RIGHT UPPER ARM -Time 14:28 -Correct Patient Yes -Correct Side, Site, Position Yes -Correct Procedure Yes -Procedure Performed Yes -Type of Procedure Debridement -Clinical Debridement Subcutaneous -Post Debridement Size (cm) - Length 2.8 -Post Debridement Size (cm) - Width 1.5 -Post Debridement Size (cm) - Depth 0.1 -Total Square Cm 4.20 -Wound/Ulcer Outcome Not Healed -Ulcer Cleansing Rinsed/ Irrigated with Saline -Foul Odor after Cleansing No -Bioengineered Tissue No -Bleeding Controlled with NA -Treatment Response Procedure Tolerated Well [See Physician Procedure note for Specifics] Pain Scale: 0-10 Numeric [Pain] -Is Patient Pain Free? Yes Neurological: Cranial nerves II-XII grossly intact, Neuro grossly intact Psych/Mental Status: Normal Affect, Appropriate, Alert and oriented to time, place, person, mood and affect Debridement Note Post-Debridement Measurements/Treatment WC - Nurse 2 - General Ulcer CM Notes Start: 12/03/17 13:39 Freq: Status: Active Protocol: Activity Type Activity Date Activity User E-Sign Co-Sign Detail Recorded Client Recorded Date Recorded By Document 12/03/17 14:31 [id number] 12/03/17 14:32 Document 12/10/17 14:21 [id number] 12/10/17 14:22 Document 12/17/17 14:11 JS [id number] 12/17/17 14:13 Document 12/24/17 14:28 [id number] 12/24/17 14:29 12/03/17 12/10/17 12/17/17 14:31 14:21 14:11 Wound Center Nurse 2 #1 RIGHT UPPER ARM -Time 14:31 14:22 14:11 -Correct Patient Yes Yes Yes -Correct Side, Site, Position Yes Yes Yes -Correct Procedure Yes Yes Yes -Procedure Performed Yes Yes Yes -Type of Procedure Debridement Debridement Debridement -Clinical Debridement Subcutaneous Subcutaneous Subcutaneous -Post Debridement Size (cm) - Length 4.5 4.0 3.5 -Post Debridement Size (cm) - Width 3.3 2.2 1.9 -Post Debridement Size (cm) - Depth 0.1 0.1 0.1 -Total Square Cm 14.85 8.80 6.65 -Wound/Ulcer Outcome Not Healed Not Healed Not Healed -Ulcer Cleansing Rinsed/ Rinsed/ Rinsed/ Irrigated with Irrigated with Irrigated with Saline Saline Saline -Foul Odor after Cleansing No No No -Bioengineered Tissue No No No -Topical Lidocaine (%) 5 4 4 -Lidocaine (ml) 5 -Bleeding Controlled with Pressure Pressure NA -Treatment Response Procedure Procedure Procedure Tolerated Well Tolerated Well Tolerated Well Pain Scale: 0-10 Numeric Is Patient Pain Free? Yes Yes Yes 12/24/17 14:28 Wound Center Nurse 2 #1 RIGHT UPPER ARM -Time 14:28 -Correct Patient Yes -Correct Side, Site, Position Yes -Correct Procedure Yes -Procedure Performed Yes -Type of Procedure Debridement -Clinical Debridement Subcutaneous -Post Debridement Size (cm) - Length 2.8 -Post Debridement Size (cm) - Width 1.5 -Post Debridement Size (cm) - Depth 0.1 -Total Square Cm 4.20 -Wound/Ulcer Outcome Not Healed -Ulcer Cleansing Rinsed/ Irrigated with Saline -Foul Odor after Cleansing No -Bioengineered Tissue No -Topical Lidocaine (%) -Lidocaine (ml) -Bleeding Controlled with NA -Treatment Response Procedure Tolerated Well Pain Scale: 0-10 Numeric Is Patient Pain Free? Yes Wound debrided: Right upper arm ulcer Laterality: Right Type of Debridement: Excisional debridement Anesthesia Used: 5% Lidocaine Gel Depth: in the subcutaneous layer Percentage of wound debrided: 100 Instrument Used: 5mm curette Tissue Removed: slough and devitalized tissue Severity: Fat Layer Exposed Amount of bleeding with debridement: Mild Bleeding Controlled with: Pressure Patient tolerated procedure well Assessment/Plan Active Problems Injury of right upper extremity (Acute) Ulcer of upper extremity (Acute) right Cellulitis of right upper extremity (Acute) Assessment: See diagnoses Plan: The patient was seen and examined at the wound center today and was updated on the plan of care. The patient's wound is improving prior to last week. A subcutaneous debridement was performed today. The patient tolerated the procedure well. The patients wound care will consist of: Applying promogran , adaptic, and gauze daily to the ulcer.Enmanuel wrap for light compression, patient completed the Bactrim DS for cellulitis which has entirely resolved. Patient educated on the importance of diet on wound healing and instructed to increase protein and vitamin C intake. Patient verbalized understanding. Patient will follow up at wound healing center in one week or sooner if needed. This note was generated with [employer] software. It may contain incorrect words, spelling, and punctuation that were not noted in checking the note before signing. Code Visit 111xxx-113xx: 01424 Autumn subq tissue 20 sq cm/<
== END 2017-12-29 23:59 ==
LOC: WC 13:30
PROVIDERS: Family Provider Family Medicine; PCP Family Medicine; Visit Provider Nurse Practitioner Family
DX: S47.1XXA Crushing injury of right shoulder and upper arm, initial encounter (principal); W31.9XXA Contact with unspecified machinery, initial encounter; Y93.89 Activity, other specified; Y92.89 Other specified places as the place of occurrence of the external cause; Y99.0 Civilian activity done for income or pay; D55.9 Anemia due to enzyme disorder, unspecified; I10 Essential (primary) hypertension; L98.492 Non-pressure chronic ulcer of skin of other sites with fat layer exposed
CPT/HCPCS: 11042

== ENCOUNTER 2018-01-21 13:30 | Outpatient (RCR) | payer OTHER, SELFPAY ==
[2017-12-30 01:03] VITALS: BP 133/69; PULSE 61; RESP 16; TEMP 36.6
[2017-12-31 14:02] VITALS: BP 104/64; PULSE 61; RESP 18; TEMP 36.2
--- NOTE | 2017-12-31 16:00 | PCM.WC.PN ---
(1) Cellulitis of right upper extremity Status: Acute Current Visit: Yes Code(s): L03.113 - Cellulitis of right upper limb (2) Injury of right upper extremity Status: Acute Current Visit: Yes Code(s): S49.91XA - Unspecified injury of right shoulder and upper arm, initial encounter (3) Ulcer of upper extremity Status: Acute Current Visit: Yes Qualifiers: Code(s): L98.499 - Non-pressure chronic ulcer of skin of other sites with unspecified severity Comment: right Type of Wound Date of Service: 12/31/17 Chief Complaint: [facility] injury right upper extremity History of Wound: This is a 67-year-old white male who presents to the wound healing center today for treatment of a ulcer in the right upper extremity. This is a [facility] claim and the injury occurred at work. The patient states that on 10/27/2017, his arm was caught in between 2 rollers. He went to the emergency department and x-rays were negative. He has a past medical history significant for that of hypertension and vitamin D deficiency. His past surgical history includes a hip replacement. On 11/03/2017, the patient followed up at a workers comp clinic and was diagnosed with cellulitis of the right upper extremity and placed on Bactrim. He has tolerating the Bactrim fine. At his previous visit here at the wound center, he was sent to the emergency department due to a moderate amount of uncontrolled bleeding. This was on 11/05/2017, the bleeding was controlled in the emergency department and the patient was sent home. He was unable to get the Santyl ordered for him due to coverage. He is currently been utilizing double antibiotic ointment and wrapping the affected extremity with an Enmanuel wrap. He denies any systemic signs of infection and has 1 day left on an antibiotic. The patient otherwise denies any fever, chills, nausea, vomiting, shortness of breath, chest pain or pressure, palpitations, orthopnea, lower extremity edema, syncope or presyncopal episodes. Progress of Wound: cellulitis resolved, site is gradually improving, pt has been doing well with promogran and adaptic - Physical Exam Vital Signs Temp Pulse Resp BP 97.2 F L 61 18 104/64 12/31/17 14:02 12/31/17 14:02 12/31/17 14:02 12/31/17 14:02 General: Alert, Oriented x3, Cooperative, No apparent distress HEENT: Atraumatic Cardiovascular: Regular rate Extremities: No clubbing, No cyanosis, No edema, Capillary Refill Less than 3 Seconds, Peripheral Pulses Normal Skin: Ulcer/ Wound - ANGE ulcer with adherant slough, no signs of infection at this time. Wound Measurements and Assessment WC - Nurse 1 - General Ulcer Measurement Start: 12/31/17 14:02 Freq: Status: Active Protocol: Activity Type Activity Date Activity User E-Sign Co-Sign Detail Recorded Client Recorded Date Recorded By Document 12/31/17 14:02 DL [id number] 12/31/17 14:07 DL 12/31/17 14:02 Wound Center Nurse 1 [Ulcer Assessment] #1 RIGHT UPPER ARM -Current Size (cm) - Length 0.9 -Current Size (cm) - Width 2.4 -Current Size (cm) - Depth 0.1 -Total Square Cm 2.16 -Photo Taken No -Exudate Amt Small (1-33%) -Exudate Type Serosanguineous -Wound Margin Distinct, Outline Attached -Granulation Amt Large (67-100%) -Granulation Quality [place] Red -Necrosis Amt None Present (0 %) -Structure Exposed N/A -Texture (Keesha-wound Skin Appearance) Scarring -Moisture (Keesha-wound Skin Appearance No Abnormality ) -Color (Keesha-wound Skin Appearance) Rubor -Temperature (Keesha-wound Skin No Abnormality Appearance) (Pt Warm) -Ulcer Cleansing Rinsed/ Irrigated with Saline -Foul Odor after Cleansing No -Anesthetic Used 4% Lidocaine Solution - Nurse 2 - General Ulcer CM Notes Start: 12/31/17 14:02 Freq: Status: Active Protocol: Activity Type Activity Date Activity User E-Sign Co-Sign Detail Recorded Client Recorded Date Recorded By Document 12/31/17 14:32 CS [id number] 12/31/17 14:33 CS 12/31/17 14:32 Wound Center Nurse 2 [Procedure/Treatment] -Time 14:32 -Correct Patient Yes -Correct Side, Site, Position Yes -Correct Procedure Yes -Procedure Performed Yes -Type of Procedure Debridement -Clinical Debridement Subcutaneous -Post Debridement Size (cm) - Length 2.6 -Post Debridement Size (cm) - Width 1.0 -Post Debridement Size (cm) - Depth 0.1 -Total Square Cm 2.60 -Wound/Ulcer Outcome Not Healed -Ulcer Cleansing Not Cleansed -Foul Odor after Cleansing No -Bioengineered Tissue No -Bleeding Controlled with Pressure -Treatment Response Procedure Tolerated Well [See Physician Procedure note for Specifics] Pain Scale: 0-10 Numeric [Pain] -Is Patient Pain Free? Yes Neurological: Cranial nerves II-XII grossly intact, Neuro grossly intact Psych/Mental Status: Normal Affect, Appropriate, Alert and oriented to time, place, person, mood and affect Debridement Note Post-Debridement Measurements/Treatment WC - Nurse 2 - General Ulcer CM Notes Start: 12/31/17 14:02 Freq: Status: Active Protocol: Activity Type Activity Date Activity User E-Sign Co-Sign Detail Recorded Client Recorded Date Recorded By Document 12/31/17 14:32 [id number] 12/31/17 14:33 12/31/17 14:32 Wound Center Nurse 2 #1 RIGHT UPPER ARM -Time 14:32 -Correct Patient Yes -Correct Side, Site, Position Yes -Correct Procedure Yes -Procedure Performed Yes -Type of Procedure Debridement -Clinical Debridement Subcutaneous -Post Debridement Size (cm) - Length 2.6 -Post Debridement Size (cm) - Width 1.0 -Post Debridement Size (cm) - Depth 0.1 -Total Square Cm 2.60 -Wound/Ulcer Outcome Not Healed -Ulcer Cleansing Not Cleansed -Foul Odor after Cleansing No -Bioengineered Tissue No -Bleeding Controlled with Pressure -Treatment Response Procedure Tolerated Well Pain Scale: 0-10 Numeric Is Patient Pain Free? Yes Wound debrided: Right upper arm ulcer Laterality: Right Type of Debridement: Excisional debridement Anesthesia Used: 5% Lidocaine Gel Depth: in the subcutaneous layer Percentage of wound debrided: 100 Instrument Used: 5mm curette Tissue Removed: slough and devitalized tissue Severity: Fat Layer Exposed Amount of bleeding with debridement: Mild Bleeding Controlled with: Pressure Patient tolerated procedure well Assessment/Plan Active Problems Injury of right upper extremity (Acute) Ulcer of upper extremity (Acute) right Cellulitis of right upper extremity (Acute) Assessment: See diagnoses Plan: The patient was seen and examined at the wound center today and was updated on the plan of care. The patient's wound is improving prior to last week. A subcutaneous debridement was performed today. The patient tolerated the procedure well. The patients wound care will consist of: Applying promogran, adaptic, and gauze daily to every other day to the ulcer.Enmanuel wrap for light compression, patient completed the Bactrim DS for cellulitis which has entirely resolved. Patient educated on the importance of diet on wound healing and instructed to increase protein and vitamin C intake. Patient verbalized understanding. Patient will follow up at wound healing center in one week or sooner if needed. This note was generated with [employer] dictation software. It may contain incorrect words, spelling, and punctuation that were not noted in checking the note before signing. Code Visit 111xxx-113xx: 24670 Autumn subq tissue 20 sq cm/<
--- NOTE | 2017-12-31 16:03 | PN.PCM_ITS ---
(1) Cellulitis of right upper extremity Status: Acute Current Visit: Yes Code(s): L03.113 - Cellulitis of right upper limb (2) Injury of right upper extremity Status: Acute Current Visit: Yes Code(s): S49.91XA - Unspecified injury of right shoulder and upper arm, initial encounter (3) Ulcer of upper extremity Status: Acute Current Visit: Yes Qualifiers: Code(s): L98.499 - Non-pressure chronic ulcer of skin of other sites with unspecified severity Comment: right Type of Wound Date of Service: 12/31/17 Chief Complaint: [facility] injury right upper extremity History of Wound: This is a 67-year-old white male who presents to the wound healing center today for treatment of a ulcer in the right upper extremity. This is a [facility] claim and the injury occurred at work. The patient states that on 10/27/2017, his arm was caught in between 2 rollers. He went to the emergency department and x-rays were negative. He has a past medical history significant for that of hypertension and vitamin D deficiency. His past surgical history includes a hip replacement. On 11/03/2017, the patient followed up at a workers comp clinic and was diagnosed with cellulitis of the right upper extremity and placed on Bactrim. He has tolerating the Bactrim fine. At his previous visit here at the wound center, he was sent to the emergency department due to a moderate amount of uncontrolled bleeding. This was on 2017, the bleeding was controlled in the emergency department and the patient was sent home. He was unable to get the Santyl ordered for him due to coverage. He is currently been utilizing double antibiotic ointment and wrapping the affected extremity with an Enmanuel wrap. He denies any systemic signs of infection and has 1 day left on an antibiotic. The patient otherwise denies any fever, chills, nausea, vomiting, shortness of breath, chest pain or pressure , palpitations, orthopnea, lower extremity edema, syncope or presyncopal episodes. Progress of Wound: cellulitis resolved, site is gradually improving, pt has been doing well with promogran and adaptic - Physical Exam Vital Signs Temp Pulse Resp BP 97.2 F L 61 18 104/64 12/31/17 14:02 12/31/17 14:02 12/31/17 14:02 12/31/17 14:02 General: Alert, Oriented x3, Cooperative, No apparent distress HEENT: Atraumatic Cardiovascular: Regular rate Extremities: No clubbing, No cyanosis, No edema, Capillary Refill Less than 3 Seconds, Peripheral Pulses Normal Skin: Ulcer/ Wound - ANGE ulcer with adherant slough, no signs of infection at this time. Wound Measurements and Assessment WC - Nurse 1 - General Ulcer Measurement Start: 12/31/17 14:02 Freq: Status: Active Protocol: Activity Type Activity Date Activity User E-Sign Co-Sign Detail Recorded Client Recorded Date Recorded By Document 12/31/17 14:02 DL [id number] 12/31/17 14:07 DL 12/31/17 14:02 Wound Center Nurse 1 [Ulcer Assessment] #1 RIGHT UPPER ARM -Current Size (cm) - Length 0.9 -Current Size (cm) - Width 2.4 -Current Size (cm) - Depth 0.1 -Total Square Cm 2.16 -Photo Taken No -Exudate Amt Small (1-33%) -Exudate Type Serosanguineous -Wound Margin Distinct, Outline Attached -Granulation Amt Large (67-100%) -Granulation Quality [place] Red -Necrosis Amt None Present (0 %) -Structure Exposed N/A -Texture (Keesha-wound Skin Appearance) Scarring -Moisture (Keesha-wound Skin Appearance No Abnormality ) -Color (Keesha-wound Skin Appearance) Rubor -Temperature (Keesha-wound Skin No Abnormality Appearance) (Pt Warm) -Ulcer Cleansing Rinsed/ Irrigated with Saline -Foul Odor after Cleansing No -Anesthetic Used 4% Lidocaine Solution - Nurse 2 - General Ulcer CM Notes Start: 12/31/17 14:02 Freq: Status: Active Protocol: Activity Type Activity Date Activity User E-Sign Co-Sign Detail Recorded Client Recorded Date Recorded By Document 12/31/17 14:32 CS [id number] 12/31/17 14:33 CS 12/31/17 14:32 Wound Center Nurse 2 [Procedure/Treatment] -Time 14:32 -Correct Patient Yes -Correct Side, Site, Position Yes -Correct Procedure Yes -Procedure Performed Yes -Type of Procedure Debridement -Clinical Debridement Subcutaneous -Post Debridement Size (cm) - Length 2.6 -Post Debridement Size (cm) - Width 1.0 -Post Debridement Size (cm) - Depth 0.1 -Total Square Cm 2.60 -Wound/Ulcer Outcome Not Healed -Ulcer Cleansing Not Cleansed -Foul Odor after Cleansing No -Bioengineered Tissue No -Bleeding Controlled with Pressure -Treatment Response Procedure Tolerated Well [See Physician Procedure note for Specifics] Pain Scale: 0-10 Numeric [Pain] -Is Patient Pain Free? Yes Neurological: Cranial nerves II-XII grossly intact, Neuro grossly intact Psych/Mental Status: Normal Affect, Appropriate, Alert and oriented to time, place, person, mood and affect Debridement Note Post-Debridement Measurements/Treatment WC - Nurse 2 - General Ulcer CM Notes Start: 12/31/17 14:02 Freq: Status: Active Protocol: Activity Type Activity Date Activity User E-Sign Co-Sign Detail Recorded Client Recorded Date Recorded By Document 12/31/17 14:32 [id number] 12/31/17 14:33 12/31/17 14:32 Wound Center Nurse 2 #1 RIGHT UPPER ARM -Time 14:32 -Correct Patient Yes -Correct Side, Site, Position Yes -Correct Procedure Yes -Procedure Performed Yes -Type of Procedure Debridement -Clinical Debridement Subcutaneous -Post Debridement Size (cm) - Length 2.6 -Post Debridement Size (cm) - Width 1.0 -Post Debridement Size (cm) - Depth 0.1 -Total Square Cm 2.60 -Wound/Ulcer Outcome Not Healed -Ulcer Cleansing Not Cleansed -Foul Odor after Cleansing No -Bioengineered Tissue No -Bleeding Controlled with Pressure -Treatment Response Procedure Tolerated Well Pain Scale: 0-10 Numeric Is Patient Pain Free? Yes Wound debrided: Right upper arm ulcer Laterality: Right Type of Debridement: Excisional debridement Anesthesia Used: 5% Lidocaine Gel Depth: in the subcutaneous layer Percentage of wound debrided: 100 Instrument Used: 5mm curette Tissue Removed: slough and devitalized tissue Severity: Fat Layer Exposed Amount of bleeding with debridement: Mild Bleeding Controlled with: Pressure Patient tolerated procedure well Assessment/Plan Active Problems Injury of right upper extremity (Acute) Ulcer of upper extremity (Acute) right Cellulitis of right upper extremity (Acute) Assessment: See diagnoses Plan: The patient was seen and examined at the wound center today and was updated on the plan of care. The patient's wound is improving prior to last week. A subcutaneous debridement was performed today. The patient tolerated the procedure well. The patients wound care will consist of: Applying promogran , adaptic, and gauze daily to every other day to the ulcer.Enmanuel wrap for light compression, patient completed the Bactrim DS for cellulitis which has entirely resolved. Patient educated on the importance of diet on wound healing and instructed to increase protein and vitamin C intake. Patient verbalized understanding. Patient will follow up at wound healing center in one week or sooner if needed. This note was generated with [employer] dictation software. It may contain incorrect words, spelling, and punctuation that were not noted in checking the note before signing. Code Visit 111xxx-113xx: 06331 Autumn subq tissue 20 sq cm/<
[2018-01-07 14:38] VITALS: BP 107/67; PULSE 62; RESP 16; TEMP 36.5
--- NOTE | 2018-01-07 18:29 | PCM.WC.PN ---
(1) Ulcer of upper extremity Status: Acute Qualifiers: Code(s): L98.499 - Non-pressure chronic ulcer of skin of other sites with unspecified severity Comment: right (2) Cellulitis of right upper extremity Status: Acute Code(s): L03.113 - Cellulitis of right upper limb (3) Injury of right upper extremity Status: Acute Code(s): S49.91XA - Unspecified injury of right shoulder and upper arm, initial encounter Type of Wound Date of Service: 01/07/18 Chief Complaint: [facility] injury right upper extremity History of Wound: This is a 67-year-old white male who presents to the wound healing center today for treatment of a ulcer in the right upper extremity. This is a [facility] claim and the injury occurred at work. The patient states that on 10/27/2017, his arm was caught in between 2 rollers. He went to the emergency department and x-rays were negative. He has a past medical history significant for that of hypertension and vitamin D deficiency. His past surgical history includes a hip replacement. On 11/03/2017, the patient followed up at a workers comp clinic and was diagnosed with cellulitis of the right upper extremity and placed on Bactrim. He has tolerating the Bactrim fine. At his previous visit here at the wound center, he was sent to the emergency department due to a moderate amount of uncontrolled bleeding. This was on 11/05/2017, the bleeding was controlled in the emergency department and the patient was sent home. He was unable to get the Santyl ordered for him due to coverage. He is currently been utilizing double antibiotic ointment and wrapping the affected extremity with an Enmanuel wrap. He denies any systemic signs of infection and has 1 day left on an antibiotic. The patient otherwise denies any fever, chills, nausea, vomiting, shortness of breath, chest pain or pressure, palpitations, orthopnea, lower extremity edema, syncope or presyncopal episodes. Progress of Wound: cellulitis resolved, site is gradually improving, pt has been doing well with promogran and adaptic - Physical Exam Vital Signs Temp Pulse Resp BP 97.7 F L 62 16 107/67 01/07/18 14:38 01/07/18 14:38 01/07/18 14:38 01/07/18 14:38 General: Alert, Oriented x3, Cooperative, No apparent distress HEENT: Atraumatic Cardiovascular: Regular rate Skin: Ulcer/ Wound - ulcer present right upper arm with adherant slough to wound bed no signs of infection Neurological: Neuro grossly intact Psych/Mental Status: Normal Affect, Appropriate, Alert and oriented to time, place, person, mood and affect Debridement Note Post-Debridement Measurements/Treatment WC - Nurse 2 - General Ulcer CM Notes Start: 12/31/17 14:02 Freq: Status: Active Protocol: Activity Type Activity Date Activity User E-Sign Co-Sign Detail Recorded Client Recorded Date Recorded By Document 12/31/17 14:32 [id number] 12/31/17 14:33 CS Document 01/07/18 15:38 [id number] 01/07/18 15:39 CS 12/31/17 01/07/18 14:32 15:38 Wound Center Nurse 2 #1 RIGHT UPPER ARM -Time 14:32 15:39 -Correct Patient Yes Yes -Correct Side, Site, Position Yes Yes -Correct Procedure Yes Yes -Procedure Performed Yes Yes -Type of Procedure Debridement Debridement -Clinical Debridement Subcutaneous Subcutaneous -Post Debridement Size (cm) - Length 2.6 1.2 -Post Debridement Size (cm) - Width 1.0 1.2 -Post Debridement Size (cm) - Depth 0.1 0.1 -Total Square Cm 2.60 1.44 -Wound/Ulcer Outcome Not Healed Not Healed -Ulcer Cleansing Not Cleansed Not Cleansed -Foul Odor after Cleansing No No -Bioengineered Tissue No No -Bleeding Controlled with Pressure NA -Treatment Response Procedure Procedure Tolerated Well Tolerated Well Pain Scale: 0-10 Numeric Is Patient Pain Free? Yes Yes Wound debrided: Right upper arm ulcer Laterality: Right Type of Debridement: Excisional debridement Anesthesia Used: 5% Lidocaine Gel Depth: in the subcutaneous layer Percentage of wound debrided: 100 Instrument Used: 5mm curette Tissue Removed: slough and devitalized tissue Severity: Fat Layer Exposed Amount of bleeding with debridement: Mild Bleeding Controlled with: Pressure Patient tolerated procedure well Assessment/Plan Assessment: See diagnoses Plan: The patient was seen and examined at the wound center today and was updated on the plan of care. The patient's wound is improving prior to last week. A subcutaneous debridement was performed today. The patient tolerated the procedure well. The patients wound care will consist of: Applying promogran, adaptic, and gauze daily to every other day to the ulcer.Enmanuel wrap for light compression, patient completed the Bactrim DS for cellulitis which has entirely resolved. Patient educated on the importance of diet on wound healing and instructed to increase protein and vitamin C intake. Patient verbalized understanding. Patient will follow up at wound healing center in two week or sooner if needed. This note was generated with [employer] dictation software. It may contain incorrect words, spelling, and punctuation that were not noted in checking the note before signing. Code Visit 111xxx-113xx: 48883 Autumn subq tissue 20 sq cm/<
[2018-01-21 13:28] VITALS: BP 109/71; PULSE 58; RESP 16; TEMP 36.5
--- NOTE | 2018-01-21 16:42 | PCM.WC.PN ---
(1) Ulcer of upper extremity Status: Acute Current Visit: Yes Qualifiers: Code(s): L98.499 - Non-pressure chronic ulcer of skin of other sites with unspecified severity Comment: right (2) Cellulitis of right upper extremity Status: Acute Current Visit: No Code(s): L03.113 - Cellulitis of right upper limb (3) Injury of right upper extremity Status: Acute Current Visit: Yes Code(s): S49.91XA - Unspecified injury of right shoulder and upper arm, initial encounter Type of Wound Date of Service: 01/21/18 Chief Complaint: [facility] injury right upper extremity History of Wound: This is a 67-year-old white male who presents to the wound healing center today for treatment of a ulcer in the right upper extremity. This is a [facility] claim and the injury occurred at work. The patient states that on 10/27/2017, his arm was caught in between 2 rollers. He went to the emergency department and x-rays were negative. He has a past medical history significant for that of hypertension and vitamin D deficiency. His past surgical history includes a hip replacement. On 11/03/2017, the patient followed up at a workers comp clinic and was diagnosed with cellulitis of the right upper extremity and placed on Bactrim. He has tolerating the Bactrim fine. At his previous visit here at the wound center, he was sent to the emergency department due to a moderate amount of uncontrolled bleeding. This was on 11/05/2017, the bleeding was controlled in the emergency department and the patient was sent home. He was unable to get the Santyl ordered for him due to coverage. He is currently been utilizing double antibiotic ointment and wrapping the affected extremity with an Enmanuel wrap. He denies any systemic signs of infection and has 1 day left on an antibiotic. The patient otherwise denies any fever, chills, nausea, vomiting, shortness of breath, chest pain or pressure, palpitations, orthopnea, lower extremity edema, syncope or presyncopal episodes. Progress of Wound: site is gradually improving, moist wound bed, pt has been doing well with promogran and adaptic - Physical Exam Vital Signs Temp Pulse Resp BP 97.7 F L 58 L 16 109/71 01/21/18 13:28 01/21/18 13:28 01/21/18 13:28 01/21/18 13:28 General: Alert, Oriented x3, Cooperative, No apparent distress HEENT: Atraumatic Oral: Moist Mucosa Cardiovascular: Regular rate Skin: Ulcer/ Wound - Ulceration ANGE with adherant slough to wound edges, no signs of acute infection at this time. No drainage or pain to site Wound Measurements and Assessment - Nurse 1 - General Ulcer Measurement Start: 12/31/17 14:02 Freq: Status: Active Protocol: Activity Type Activity Date Activity User E-Sign Co-Sign Detail Recorded Client Recorded Date Recorded By Document 01/21/18 13:28 [facility] [id number] 01/21/18 13:34 [facility] 01/21/18 13:28 Wound Center Nurse 1 [Ulcer Assessment] #1 RIGHT UPPER ARM -Combined with other wound No -Current Size (cm) - Length 1.1 -Current Size (cm) - Width 1 -Current Size (cm) - Depth 0.1 -Total Square Cm 1.1 -Photo Taken No -Epithelialization Small 1-33% -Tunneling No -Undermining/Tunneling No -Circular Undermining No -Exudate Amt None Present (0 %) -Wound Margin Distinct, Outline Attached -Granulation Amt Small (1-33%) -Granulation Quality Red -Slough/Fibrin Yes -Necrosis Amt Medium (34-66%) -Necrotic Tissue Type Adherent Slough -Structure Exposed None/Limited to Skin Breakdown -Texture (Keesha-wound Skin Appearance) Scarring -Moisture (Keesha-wound Skin Appearance Dry/Scaly ) -Color (Keesha-wound Skin Appearance) Assessed -Temperature (Keesha-wound Skin No Abnormality Appearance) (Pt Warm) -Tenderness on Palpation (Keesha-wound No Skin Appearance) -Ulcer Cleansing Rinsed/ Irrigated with Saline -Foul Odor after Cleansing No -Anesthetic Used 5% Lidocaine Gel - Nurse 2 - General Ulcer CM Notes Start: 12/31/17 14:02 Freq: Status: Active Protocol: Activity Type Activity Date Activity User E-Sign Co-Sign Detail Recorded Client Recorded Date Recorded By Document 01/21/18 13:54 [id number] 01/21/18 13:56 01/21/18 13:54 Wound Center Nurse 2 [Procedure/Treatment] -Time 13:55 -Correct Patient Yes -Correct Side, Site, Position Yes -Correct Procedure Yes -Procedure Performed Yes -Type of Procedure Debridement -Clinical Debridement Subcutaneous -Post Debridement Size (cm) - Length 0.9 -Post Debridement Size (cm) - Width 0.9 -Post Debridement Size (cm) - Depth 0.1 -Total Square Cm 0.81 -Wound/Ulcer Outcome Not Healed -Ulcer Cleansing Not Cleansed -Foul Odor after Cleansing No -Bioengineered Tissue No -Bleeding Controlled with NA -Treatment Response Procedure Tolerated Well [See Physician Procedure note for Specifics] Pain Scale: 0-10 Numeric [Pain] -Is Patient Pain Free? Yes Neurological: Neuro grossly intact Psych/Mental Status: Normal Affect, Appropriate, Alert and oriented to time, place, person, mood and affect Debridement Note Post-Debridement Measurements/Treatment WC - Nurse 2 - General Ulcer CM Notes Start: 12/31/17 14:02 Freq: Status: Active Protocol: Activity Type Activity Date Activity User E-Sign Co-Sign Detail Recorded Client Recorded Date Recorded By Document 12/31/17 14:32 [id number] 12/31/17 14:33 Document 01/07/18 15:38 [id number] 01/07/18 15:39 Document 01/21/18 13:54 [id number] 01/21/18 13:56 12/31/17 01/07/18 01/21/18 14:32 15:38 13:54 Wound Center Nurse 2 #1 RIGHT UPPER ARM -Time 14:32 15:39 13:55 -Correct Patient Yes Yes Yes -Correct Side, Site, Position Yes Yes Yes -Correct Procedure Yes Yes Yes -Procedure Performed Yes Yes Yes -Type of Procedure Debridement Debridement Debridement -Clinical Debridement Subcutaneous Subcutaneous Subcutaneous -Post Debridement Size (cm) - Length 2.6 1.2 0.9 -Post Debridement Size (cm) - Width 1.0 1.2 0.9 -Post Debridement Size (cm) - Depth 0.1 0.1 0.1 -Total Square Cm 2.60 1.44 0.81 -Wound/Ulcer Outcome Not Healed Not Healed Not Healed -Ulcer Cleansing Not Cleansed Not Cleansed Not Cleansed -Foul Odor after Cleansing No No No -Bioengineered Tissue No No No -Bleeding Controlled with Pressure NA NA -Treatment Response Procedure Procedure Procedure Tolerated Well Tolerated Well Tolerated Well Pain Scale: 0-10 Numeric Is Patient Pain Free? Yes Yes Yes Wound debrided: ANGE ulcer Laterality: Right Type of Debridement: Excisional debridement Anesthesia Used: 5% Lidocaine Gel Depth: Down to and including healthy tissue, in the subcutaneous layer Percentage of wound debrided: 100 Instrument Used: 5mm curette Tissue Removed: slough and devitalized tissue Severity: Fat Layer Exposed Amount of bleeding with debridement: Mild Bleeding Controlled with: Pressure Patient tolerated procedure well Assessment/Plan Active Problems Injury of right upper extremity (Acute) Ulcer of upper extremity (Acute) right Assessment: See diagnoses Plan: The patient was seen and examined at the wound center today and was updated on the plan of care. The patient's wound is improving. A subcutaneous debridement was performed today. The patient tolerated the procedure well. The patients wound care will consist of: Applying adaptic, and gauze daily to every other day to the ulcer. Enmanuel wrap for light compression, patient completed the Bactrim DS for cellulitis which has entirely resolved. Patient educated on the importance of diet on wound healing and instructed to increase protein and vitamin C intake. Patient verbalized understanding. Patient will follow up at wound healing center in two weeks or sooner if needed. This note was generated with [employer] dictation software. It may contain incorrect words, spelling, and punctuation that were not noted in checking the note before signing. Code Visit 111xxx-113xx: 41028 Autumn subq tissue 20 sq cm/<
== END 2018-01-29 23:59 ==
LOC: WC 13:30
PROVIDERS: Family Provider Family Medicine; PCP Family Medicine; Visit Provider Nurse Practitioner Family
DX: L98.492 Non-pressure chronic ulcer of skin of other sites with fat layer exposed (principal); L03.113 Cellulitis of right upper limb; I10 Essential (primary) hypertension; E55.9 Vitamin D deficiency, unspecified
CPT/HCPCS: 11042

== ENCOUNTER 2018-02-04 12:37 | Outpatient (RCR) | payer OTHER, SELFPAY ==
[2018-01-30 01:09] VITALS: BP 109/71; PULSE 58; RESP 16; TEMP 36.5
[2018-02-04 13:19] VITALS: BP 107/67; PULSE 64; RESP 18; TEMP 36.2
--- NOTE | 2018-02-04 17:38 | PCM.WC.PN ---
(1) Injury of right upper extremity Status: Acute Current Visit: Yes Code(s): S49.91XA - Unspecified injury of right shoulder and upper arm, initial encounter (2) Ulcer of upper extremity Status: Acute Current Visit: Yes Qualifiers: Non-pressure ulcer stage: with fat layer exposed Code(s): L98.499 - Non-pressure chronic ulcer of skin of other sites with unspecified severity Comment: right Type of Wound Date of Service: 02/04/18 Chief Complaint: [facility] injury right upper extremity History of Wound: This is a 67-year-old white male who presents to the wound healing center today for treatment of a ulcer in the right upper extremity. This is a [facility] claim and the injury occurred at work. The patient states that on 10/27/2017, his arm was caught in between 2 rollers. He went to the emergency department and x-rays were negative. He has a past medical history significant for that of hypertension and vitamin D deficiency. His past surgical history includes a hip replacement. On 11/03/2017, the patient followed up at a workers comp clinic and was diagnosed with cellulitis of the right upper extremity and placed on Bactrim. He has tolerating the Bactrim fine. At his previous visit here at the wound center, he was sent to the emergency department due to a moderate amount of uncontrolled bleeding. This was on 11/05/2017, the bleeding was controlled in the emergency department and the patient was sent home. He was unable to get the Santyl ordered for him due to coverage. He is currently been utilizing double antibiotic ointment and wrapping the affected extremity with an Enmanuel wrap. He denies any systemic signs of infection and has 1 day left on an antibiotic. The patient otherwise denies any fever, chills, nausea, vomiting, shortness of breath, chest pain or pressure, palpitations, orthopnea, lower extremity edema, syncope or presyncopal episodes. Progress of Wound: site is healed, no signs of infection at this time. The patient otherwise denies any fever, chills, nausea, vomiting, shortness of breath, chest pain or pressure, palpitations, orthopnea, lower extremity edema, syncope or presyncopal episodes. - Physical Exam Vital Signs Temp Pulse Resp BP 97.1 F L 64 18 107/67 02/04/18 13:19 02/04/18 13:19 02/04/18 13:19 02/04/18 13:19 General: Alert, Oriented x3, Cooperative, No apparent distress HEENT: Atraumatic Lungs: Clear to auscultation, Normal air movement Cardiovascular: Regular rate, Regular Rhythm Extremities: No clubbing, No cyanosis, No edema Skin: Ulcer/ Wound - ANGE ulcer healed Wound Measurements and Assessment WC - Nurse 1 - General Ulcer Measurement Start: 02/04/18 13:19 Freq: Status: Active Protocol: Activity Type Activity Date Activity User E-Sign Co-Sign Detail Recorded Client Recorded Date Recorded By Document 02/04/18 13:19 RB [id number] 02/04/18 13:21 RB 02/04/18 13:19 Wound Center Nurse 1 [Ulcer Assessment] #1 RIGHT UPPER ARM -Combined with other wound No -Current Size (cm) - Length 0 -Current Size (cm) - Width 0 -Current Size (cm) - Depth 0 -Total Square Cm 0 -Photo Taken Yes -Epithelialization Large 67-100% -Tunneling No -Undermining/Tunneling No -Circular Undermining No -Exudate Amt None Present (0 %) -Wound Margin Distinct, Outline Attached -Granulation Amt Large (67-100%) -Granulation Quality [place] -Slough/Fibrin No -Necrosis Amt None Present (0 %) -Structure Exposed N/A -Texture (Keesha-wound Skin Appearance) Assessed -Moisture (Keesha-wound Skin Appearance Assessed ) -Color (Keesha-wound Skin Appearance) Assessed -Temperature (Keesha-wound Skin No Abnormality Appearance) (Pt Warm) -Tenderness on Palpation (Keesha-wound No Skin Appearance) -Ulcer Cleansing Rinsed/ Irrigated with Saline -Foul Odor after Cleansing No WC - Nurse 2 - General Ulcer CM Notes Start: 02/04/18 13:19 Freq: Status: Active Protocol: Activity Type Activity Date Activity User E-Sign Co-Sign Detail Recorded Client Recorded Date Recorded By Document 02/04/18 13:39 [facility] [id number] 02/04/18 13:40 [facility] 02/04/18 13:39 Wound Center Nurse 2 [Procedure/Treatment] -Time 13:39 -Correct Patient Yes -Correct Side, Site, Position Yes -Correct Procedure Yes -Procedure Performed No -Post Debridement Size (cm) - Length 0 -Post Debridement Size (cm) - Width 0 -Post Debridement Size (cm) - Depth 0 -Total Square Cm 0 -Wound/Ulcer Outcome Healed- Epithelialized -Foul Odor after Cleansing No -Bioengineered Tissue No -Bleeding Controlled with NA [See Physician Procedure note for Specifics] Pain Scale: 0-10 Numeric [Pain] -Is Patient Pain Free? Yes Neurological: Neuro grossly intact Psych/Mental Status: Normal Affect, Appropriate, Alert and oriented to time, place, person, mood and affect Debridement Note Post-Debridement Measurements/Treatment WC - Nurse 2 - General Ulcer CM Notes Start: 02/04/18 13:19 Freq: Status: Active Protocol: Activity Type Activity Date Activity User E-Sign Co-Sign Detail Recorded Client Recorded Date Recorded By Document 02/04/18 13:39 [facility] [id number] 02/04/18 13:40 [facility] 02/04/18 13:39 Wound Center Nurse 2 #1 RIGHT UPPER ARM -Time 13:39 -Correct Patient Yes -Correct Side, Site, Position Yes -Correct Procedure Yes -Procedure Performed No -Post Debridement Size (cm) - Length 0 -Post Debridement Size (cm) - Width 0 -Post Debridement Size (cm) - Depth 0 -Total Square Cm 0 -Wound/Ulcer Outcome Healed- Epithelialized -Foul Odor after Cleansing No -Bioengineered Tissue No -Bleeding Controlled with NA Pain Scale: 0-10 Numeric Is Patient Pain Free? Yes Assessment/Plan Active Problems Injury of right upper extremity (Acute) Ulcer of upper extremity (Acute) right Assessment: See diagnoses Plan: The patient was seen and examined at the wound center today and was updated on the plan of care. The patient's wound is is now healed. He will follow up at the [facility] clinic for final eval. May utilize eucerin and vitamin E to the healed tissue. Continue protecting with gauze x 1 week, then may discontinue. Pt will be discharged from [facility] and f/u prn. This note was generated with [employer] dictation software. It may contain incorrect words, spelling, and punctuation that were not noted in checking the note before signing. Code Visit Office Visits / Consults: [id number] OV L2 Est
== END 2018-02-28 23:59 ==
LOC: WC 12:37
PROVIDERS: Family Provider Family Medicine; PCP Family Medicine; Visit Provider Nurse Practitioner Family
DX: Z09 Encounter for follow-up examination after completed treatment for conditions other than malignant neoplasm (principal); I10 Essential (primary) hypertension; E55.9 Vitamin D deficiency, unspecified
CPT/HCPCS: 99211; G0463